=== PATIENT | female | born 1990 | race Caucasian/White ===

== ENCOUNTER 2016-08-13 19:13 | Emergency (ER) | payer OTHER ==
[~2016-08-13 19:13] MED LIST: ATARAX PO; BUSPAR PO; CARB20TAXR PO; NICO14DI3 TD; PROZAC PO; TOBRSUS8 AS; VIST25CA PO
--- NOTE | 2016-08-13 20:30 | REPUSA ---
HISTORY: Assess for mastoiditis TECHNIQUE: Multiple contiguous axial CT images were obtained through the facial bones at 2.5 mm slice thickness without the use of intravenous contrast. 1.25 mm axial reformations were created from whic h sagittal and coronal reformations were performed to evaluate the orbital floors. COMPARISON: CT facial bones 08/20/2014. FINDINGS: The visualized intracranial structures are unremarkable. Stable opacification of left mastoid air cells with an osseous defect in the posterior petrous portio n of the temporal bone extending from the middle aspect echotexture moderate canal through posterior cortical defect on axial series 201 images 10-13. Absence of intravenous contrast limits further eval uation of this region. Intraluminal densities in the mid left external auditory canal noted with calcification. Remaining facial bones and soft tissues demonstrate no evidence of destructive lytic changes, fractur e, or identifiable fluid collection. The paranasal sinuses are well pneumatized. IMPRESSION: Left mastoid findings as described are grossly stable in appearance from 08/20/2014, suggestive of post mastoidectomy changes although superimposed infection is not excluded.
[2016-08-13 20:34] LABS: BASO % 0.5 % (0.0-1.0); EOS # 0.1 K/mm3 (0.0-0.50); EOS % 2.8 % (0.0-3.0); LARGE UNSTAINED CELL # 0.2 K/mm3 (0.0-0.4); LARGE UNSTAINED CELL % 3.8 % (0.0-4.0); LYMPH # 1.9 K/mm3 (1.5-6.5); LYMPH % 36.2 % (24.0-44.0); MEAN CORPUSCULAR HEMOGLOBIN 32.2 pg (27.0-33.0); MEAN CORPUSCULAR HGB CONC 32.9 g/dl (32.0-36.5); MEAN CORPUSCULAR VOLUME 97.9 fl (80.0-96.0); MONO # 0.3 K/mm3 (0.0-0.8); MONO % 6.6 % (0.0-5.0); NEUTROPHILS # 2.6 K/mm3 (1.8-7.7); NEUTROPHILS % 50.1 % (36.0-66.0); PLATELET COUNT, AUTOMATED 334 k/mm3 (150-450); RED CELL DISTRIBUTION WIDTH 11.9 % (11.5-14.5); WHITE BLOOD COUNT 5.1 K/mm3 (4.0-10.0)
[2016-08-13] MEDS ORDERED: ACETAMINOPH W/CODEINE #3 TAB UD As Ordered ONE (20:49)
[2016-08-13 21:05] LABS: ANION GAP 7 MEQ/L (8-16); BLOOD UREA NITROGEN 12 MG/DL (7-18); CALCIUM LEVEL 8.5 MG/DL (8.5-10.1); CARBON DIOXIDE LEVEL 28 MEQ/L (21-32); CHLORIDE LEVEL 108 MEQ/L (98-107); CREATININE FOR GFR 0.57 MG/DL (0.55-1.02); GLOMERULAR FILTRATION RATE > 60.0 (>60); GLUCOSE, FASTING 87 MG/DL (70-105); POTASSIUM SERUM 3.8 MEQ/L (3.5-5.1); SODIUM LEVEL 143 MEQ/L (136-145)
[2016-08-13] MEDS ORDERED: CIPROFLOXACIN HC OTIC SUSPENSION As Ordered ONE (21:19)
[2016-08-13] MEDS ORDERED: CLINDAMYCIN 150 MG CAP As Ordered ONE (21:19)
[2016-08-13] MEDS ORDERED: ACETAMINOPHEN/CODEINE #3 TABLET (BULK) As Ordered ONE (21:21)
--- NOTE | 2016-08-13 21:46 | EDDOCDS ---
Physician Documentation [facility] Name: Nohemi Craig Age: 26 yrs Sex: Female : 1990 Arrival Date: 08/13/2016 Time: 19:13 Bed I3 / M3 Private MD: Chemo [facility] [place] Disposition: 08/13/16 21:29 Discharged to Home/Self Care. Impression: Other perforations of tympanic membrane - LEFT, Cellulitis, unspecified - POST AURICULAR - LEFT. - Condition is Stable. - Discharge Instructions: Eardrum Perforation. - Prescriptions for Cipro HC 0.2- 1 % Otic Drops, Suspension - instill 3 drop by OTIC route every 12 hours for 7 days; 10 milliliter. Clindamycin HCl 300 mg Oral Capsule - take 1 capsule by ORAL route every 6 hours; 40 capsule. Tylenol- Codeine #3 300-30 mg Oral Tablet - take 2 tablets by ORAL route every 6 hours As needed MDD: 4 tabs; 20 tablet. - Medication Reconciliation, Local Pharmacy Hours form. - Follow up: Maximiliano Jacobs; When: 1 week; Reason: Recheck today's complaints, Continuance of care. Follow up: Emergency Department; When: As needed; Reason: Worsening of conditions. - Problem is new. - Symptoms have improved. - Notes: CALL THE ENT OFFICE TOMORROW, TELL THEM YOU WERE SEEN IN THE ER AND THAT DR CLEMONS WAS CONSULTED AND YOU NEED AN APPOINTMENT WITHIN THE NEXT WEEK, IF SYMPTOMS WORSEN OR BECOME CONCERNING, RETURN TO THE ER. USE THE MEDICATIONS INSTRUTCED Historical: - Allergies: Augmentin (Rash); Flexeril; Tramadol HCl (Swelling); - Home Meds: 1. Tylenol 325 mg Oral tab 2 tabs every 4 hours - PMHx: Anxiety; Depression; head injury 2011; Seizure Disorder; - PSHx: Ear Tubes; - Social history: Smoking status: Patient states former smoker of tobacco. No barriers to communication noted, The patient speaks fluent Kinyarwanda. - Family history: No immediate family members are acutely ill. - : The pt / caregiver states he / she is not on anticoagulants. Home medication list is obtained from the patient. - Exposure Risk Screening:: None identified. 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 6 in. (167.64 cm) (R); Pain 9/10; 21:43 BP 128 / 76; Pulse 71; Resp 18; Temp 98.8(TE); Pulse Ox 97% on R/A; Pain 6/10; nn1 21:43 Pain 6/10; nn1 19:16 Body Mass Index 25.82 (72.57 kg, 167.64 cm) gr2 MDM: 19:48 IV Saline Lock ordered. ck7 19:48 NS 0.9% 1000 ml IV at bolus once ordered. ck7 19:49 CBC with Diff Ordered. EDMS 19:49 MED Profile Ordered. EDMS 19:49 CT Maxilofacial W/out Contrast Ordered. EDMS 19:53 Financial registration complete. zo 20:07 [facility] Payment Agreement was scanned into [employer] and attached to record. zo 20:48 Acetaminophen-Codeine 300 mg-30 mg 2 tabs PO once ordered. ck7 21:17 Ciprofloxacin-Hydrocortisone Drops 0.2 %-1 % 2 drps Otic once ordered. ck7 21:17 Clindamycin 300 mg PO once ordered. ck7 21:18 Acetaminophen-Codeine, 4 pack- 300 mg-30 mg 1 packets PO once; Dispense with patient. ck7 Take per package instructions. ordered. 21:19 CBC with Diff Reviewed. ck7 21:19 MED Profile Reviewed. ck7 21:19 CT Maxilofacial W/out Contrast Reviewed. ck7 Administered Medications: 20:20 Drug: NS 0.9% 1000 ml [sodium chloride 0.9 % intravenous solution] Route: IV; Rate: nn1 bolus; Site: right antecubital; 21:43 Follow up: IV Status: Completed infusion; IV Intake: 1000ml nn1 20:52 Drug: Acetaminophen-Codeine 2 tabs [acetaminophen 300 mg-codeine 30 mg tablet (2 tabs)] nn1 Route: PO; 21:43 Follow up: Pain 6/10 Adult nn1 21:26 Drug: Ciprofloxacin-Hydrocortisone 2 drps [ciprofloxacin 0.2 %-hydrocortisone 1 % ear nn1 drops,suspension (2 drps)] Route: Otic; Site: left ear; 21:26 Drug: Clindamycin 300 mg [clindamycin 150 mg capsule (2 caps)] Route: PO; nn1 21:28 Drug: Acetaminophen-Codeine, 4 pack- 1 packets [acetaminophen 300 mg-codeine 30 mg nn1 tablet (1 tabs)] {Co-Signature: ms18 (Yany Eli RN).} Route: PO; Signatures: Dispatcher [employer] Aaron Heath Christopher, RPA-C RPA-Cck7 Cindy VargasRN RN nn1 Yvonne Padilla RN RN tm5 Yany Eli RN ms18 The chart was reviewed and I authenticate all verbal orders and agree with the evaluation and treatment provided.Attachments: 20:07 [facility] Payment Agreement zo MTDD
--- NOTE | 2016-08-13 21:46 | EDDOCDS ---
Nurse's Notes [facility] Name: Nohemi Craig Age: 26 yrs Sex: Female : 1990 Arrival Date: 08/13/2016 Time: 19:13 Bed I3 / M3 Private MD: SAMI Mclain Diagnosis: Other perforations of tympanic membrane-LEFT;Cellulitis, unspecified-POST AURICULAR - LEFT Presentation: 08/13 19:18 Presenting complaint: Patient states: per pt about one week with left ear pain, states tm5 yesterday she lost hearing to left ear & has had bloody drainage to left ear as well. Adult Sepsis Screening: The patient does not have new or worsening altered mentation. Patient's respiratory rate is less than 22. Systolic blood pressure is greater than 100. Patient has a qSOFA score of 0- Negative Sepsis Screen. Suicide/Homicide risk assessment- the patient denies having any suicidal and/or homicidal ideations and does not present with any other emotional, behavioral or mental health complaints. 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 Transition of care: patient was not received from another setting of care. 19:18 Acuity: STACY Level 4 tm5 19:18 Method Of Arrival: Walkin/Carried/Asstd tm5 Triage Assessment: 19:20 General: Appears in no apparent distress, Behavior is appropriate for age, cooperative. tm5 Pain: Location: left ear Pain currently is 9 out of 10 on a pain scale. Pt Declines HIV testing. Neurological: Level of Consciousness is awake, alert, Oriented to person, place, time, EENT: Reports pain in left ear. Respiratory: Airway is patent Respiratory effort is even, unlabored, Respiratory pattern is regular, symmetrical. Derm: Skin is pink, warm & dry. 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 Tylenol 325 mg Oral tab 2 tabs every 4 hours - PMHx: Anxiety; Depression; head injury 2011; Seizure Disorder; - PSHx: Ear Tubes; - Social history: Smoking status: Patient states former smoker of tobacco. No barriers to communication noted, The patient speaks fluent Maori. - Family history: No immediate family members are acutely ill. - : The pt / caregiver states he / she is not on anticoagulants. Home medication list is obtained from the patient. - Exposure Risk Screening:: None identified. Screenin:21 Screening information is obtained from the patient. Fall risk: No risks identified. tm5 Assistance ADL's: requires no assistance with activities of daily living. Abuse/DV Screen: The patient / caregiver reports he/she is: not in a situation that causes fear, pain or injury. Nutritional screening: No deficits noted. Advance Directives: Currently, there is no health care proxy. There is no active DNR order. home support is adequate. Assessment: 20:18 General: Appears in no apparent distress, comfortable, Behavior is appropriate for age, nn1 cooperative. Pain: Location: left ear Pain currently is 9 out of 10 on a pain scale. Pain began 1 week ago. EENT: Reports decreased hearing in left ear reports she is unable to hear out of left ear since today bloody drainage out of left ear x 1 week. Respiratory: Airway is patent Respiratory effort is even, unlabored, Respiratory pattern is regular, symmetrical. Derm: Skin is pink, warm & dry. 20:53 General: Appears uncomfortable, Behavior is appropriate for age, cooperative. Pain: nn1 Location: left ear Pain currently is 9 out of 10 on a pain scale. 21:42 General: Appears in no apparent distress, comfortable, Behavior is appropriate for age, nn1 cooperative. Pain: Location: left ear Pain currently is 6 out of 10 on a pain scale. Respiratory: Airway is patent Respiratory effort is even, unlabored, Respiratory pattern is regular, symmetrical. Derm: Skin is pink, warm & dry. Vital Signs: 19:16 BP 139 / 85; Pulse 93; Resp 18 S; Temp 97.7(O); Pulse Ox 100% on R/A; Weight 72.57 kg gr2 (R); Height 5 ft. 6 in. (167.64 cm) (R); Pain 9/10; 21:43 BP 128 / 76; Pulse 71; Resp 18; Temp 98.8(TE); Pulse Ox 97% on R/A; Pain 6/10; nn1 21:43 Pain 6/10; nn1 19:16 Body Mass Index 25.82 (72.57 kg, 167.64 cm) gr2 Vitals: 19:16 Log In Time: August 13, 2016 at 19:16. gr2 ED Course: 19:15 Patient visited by Ann Shell. gr2 19:15 Patient moved to Waiting gr2 19:16 [facility] [place] Private Physician. gr2 19:17 Patient visited by Ann Shell. gr2 19:17 Patient moved to Pre RCE gr2 19:19 Triage Initiated tm5 19:22 Patient moved to Triage 2 tm5 19:23 Felix Bhakta RPA-C is PHCP. ck7 19:23 Mervat Mclean MD is Attending Physician. ck7 19:23 Patient visited by Felix Bhakta RPA-C. ck7 19:40 Patient moved to I3 / M3 lf1 20:07 [facility] Payment Agreement was scanned into [employer] and attached to record. zo 20:20 Patient visited by Cindy Vargas RN. nn1 20:20 Inserted saline lock: 20 gauge in right antecubital area and blood collected. The nn1 patient tolerated the procedure well. 20:20 MED Profile Sent. nn1 20:20 CBC with Diff Sent. nn1 20:57 Patient visited by Cindy Vargas RN. nn1 21:17 CT Maxilofacial W/out Contrast Returned. EDMS 21:27 Patient visited by Cindy Vargas RN. nn1 21:28 Maximiliano Jacobs is Referral Physician. ck7 21:44 No procedures done that require assistance. nn1 21:45 The patient / caregiver is instructed regarding the plan of care and ED course. nn1 Administered Medications: 20:20 Drug: NS 0.9% 1000 ml [sodium chloride 0.9 % intravenous solution] Route: IV; Rate: nn1 bolus; Site: right antecubital; 21:43 Follow up: IV Status: Completed infusion; IV Intake: 1000ml nn1 20:52 Drug: Acetaminophen-Codeine 2 tabs [acetaminophen 300 mg-codeine 30 mg tablet (2 tabs)] nn1 Route: PO; 21:43 Follow up: Pain 6/10 Adult nn1 21:26 Drug: Ciprofloxacin-Hydrocortisone 2 drps [ciprofloxacin 0.2 %-hydrocortisone 1 % ear nn1 drops,suspension (2 drps)] Route: Otic; Site: left ear; 21:26 Drug: Clindamycin 300 mg [clindamycin 150 mg capsule (2 caps)] Route: PO; nn1 21:28 Drug: Acetaminophen-Codeine, 4 pack- 1 packets [acetaminophen 300 mg-codeine 30 mg nn1 tablet (1 tabs)] {Co-Signature: ms18 (Yany Eli RN).} Route: PO; Intake: 21:43 IV: 1000.00ml (NS); Total: 1000.00ml. nn1 21:43 IV: 1000.00ml; Total: 2000.00ml. nn1 Order Results: Lab Order: CBC with Diff; SPEC'M 08/13/16 20:09 Test: WHITE BLOOD COUNT; Value: 5.1; Range: 4.0-10.0; Units: K/mm3; Status: F Test: RED BLOOD COUNT; Value: 3.77; Range: 4.00-5.40; Abnormal: Below low normal; Units: M/mm3; Status: F Test: HEMOGLOBIN; Value: 12.2; Range: 12.0-16.0; Units: g/dl; Status: F Test: HEMATOCRIT; Value: 36.9; Range: 36.0-47.0; Units: %; Status: F Test: MEAN CORPUSCULAR VOLUME; Value: 97.9; Range: 80.0-96.0; Abnormal: Above high normal; Units: fl; Status: F Test: MEAN CORPUSCULAR HEMOGLOBIN; Value: 32.2; Range: 27.0-33.0; Units: pg; Status: F Test: MEAN CORPUSCULAR HGB CONC; Value: 32.9; Range: 32.0-36.5; Units: g/dl; Status: F Test: RED CELL DISTRIBUTION WIDTH; Value: 11.9; Range: 11.5-14.5; Units: %; Status: F Test: PLATELET COUNT, AUTOMATED; Value: 334; Range: 150-450; Units: k/mm3; Status: F Test: NEUTROPHILS %; Value: 50.1; Range: 36.0-66.0; Units: %; Status: F Test: LYMPH %; Value: 36.2; Range: 24.0-44.0; Units: %; Status: F Test: MONO %; Value: 6.6; Range: 0.0-5.0; Abnormal: Above high normal; Units: %; Status: F Test: EOS %; Value: 2.8; Range: 0.0-3.0; Units: %; Status: F Test: BASO %; Value: 0.5; Range: 0.0-1.0; Units: %; Status: F Test: LARGE UNSTAINED CELL %; Value: 3.8; Range: 0.0-4.0; Units: %; Status: F Test: NEUTROPHILS #; Value: 2.6; Range: 1.8-7.7; Units: K/mm3; Status: F Test: LYMPH #; Value: 1.9; Range: 1.5-6.5; Units: K/mm3; Status: F Test: MONO #; Value: 0.3; Range: 0.0-0.8; Units: K/mm3; Status: F Test: EOS #; Value: 0.1; Range: 0.0-0.50; Units: K/mm3; Status: F Test: BASO #; Value: 0.0; Range: 0.0-0.2; Units: K/mm3; Status: F Test: LARGE UNSTAINED CELL #; Value: 0.2; Range: 0.0-0.4; Units: K/mm3; Status: F Lab Order: [facility] Profile; SPEC'M 08/13/16 20:09 Test: GLUCOSE, FASTING; Value: 87; Range: 70-105; Units: MG/DL; Status: F Test: BLOOD UREA NITROGEN; Value: 12; Range: 7-18; Units: MG/DL; Status: F Test: CREATININE FOR GFR; Value: 0.57; Range: 0.55-1.02; Units: MG/DL; Status: F Test: GLOMERULAR FILTRATION RATE; Value: > 60.0; Range: >60; Status: F Test: SODIUM LEVEL; Value: 143; Range: 136-145; Units: MEQ/L; Status: F Test: POTASSIUM SERUM; Value: 3.8; Range: 3.5-5.1; Units: MEQ/L; Status: F Test: CHLORIDE LEVEL; Value: 108; Range: 98-107; Abnormal: Above high normal; Units: MEQ/L; Status: F Test: CARBON DIOXIDE LEVEL; Value: 28; Range: 21-32; Units: MEQ/L; Status: F Test: ANION GAP; Value: 7; Range: 8-16; Abnormal: Below low normal; Units: MEQ/L; Status: F Test: CALCIUM LEVEL; Value: 8.5; Range: 8.5-10.1; Units: MG/DL; Status: F Test Note: ; Units are mL/min/1.73 m2 Chronic Kidney Disease Staging per NKF: Stage I & II GFR >=60 Normal to Mildly Decreased Stage III GFR 30-59 Moderately Decreased Stage IV GFR 15-29 Severely Decreased Stage V GFR <15 Very Little GFR Left ESRD GFR <15 on OUTDOOR ADVENTURE LEADER Radiology Order: CT Maxilofacial W/out Contrast Test: CT Maxilofacial W/out Contrast REASON FOR EXAMINATION: R./O LEFT MASTOIDITIS; ; HISTORY: Assess for mastoiditis; TECHNIQUE: Multiple contiguous axial CT images were obtained through the facial bones at 2.5 mm slice; thickness without the use of intravenous contrast. 1.25 mm axial reformations were created from whic; h sagittal and coronal reformations were performed to evaluate the orbital floors.; COMPARISON: CT facial bones 08/20/2014.; FINDINGS:; The visualized intracranial structures are unremarkable.; Stable opacification of left mastoid air cells with an osseous defect in the posterior petrous portio; n of the temporal bone extending from the middle aspect echotexture moderate canal through posterior; cortical defect on axial series 201 images 10-13. Absence of intravenous contrast limits further eval; uation of this region.; Intraluminal densities in the mid left external auditory canal noted with calcification.; Remaining facial bones and soft tissues demonstrate no evidence of destructive lytic changes, fractur; e, or identifiable fluid collection.; The paranasal sinuses are well pneumatized.; IMPRESSION:; Left mastoid findings as described are grossly stable in appearance from 08/20/2014, suggestive of post; mastoidectomy changes although superimposed infection is not excluded.; ; Outcome: 21:29 Discharge ordered by Provider. ck7 21:44 Discharge Assessment: Patient awake, alert and oriented x 3. No cognitive and/or nn1 functional deficits noted. Patient verbalized understanding of disposition instructions. patient administered narcotics - yes. Pt provided with safe discharge. The following High Risk Discharge criteria are identified: None. Discharged to home ambulatory, with significant other. Condition: stable Condition: unchanged. Discharge instructions given to patient, Instructed on discharge instructions, follow up and referral plans. medication usage, Demonstrated understanding of instructions, medications, Pt was receptive of discharge instructions/ teaching. Prescriptions given X 3. CT Study completed. Property :Personal belongings accompany Pt. 21:45 Patient left the ED. nn1 Signatures: Dispatcher [employer] EDMS Aaron Shabazz Lisa,RN RN lf1 Felix Bhakta, RPA-C RPA-Cck7 Ann Shell gr2 Cindy VargasRN RN nn1 Yvonne PadillaRN RN tm5 Yany Eli RN [id number] GAGANDEEPD
--- NOTE | 2016-08-15 22:45 | EDDOCDS ---
Nurse's Notes [facility] Name: Nohemi Craig Age: 26 yrs Sex: Female : 1990 Arrival Date: 08/13/2016 Time: 19:13 Bed I3 / M3 Private MD: SAMI Mclain Diagnosis: Other perforations of tympanic membrane-LEFT;Cellulitis, unspecified-POST AURICULAR - LEFT Presentation: 08/13 19:18 Presenting complaint: Patient states: per pt about one week with left ear pain, states tm5 yesterday she lost hearing to left ear & has had bloody drainage to left ear as well. Adult Sepsis Screening: The patient does not have new or worsening altered mentation. Patient's respiratory rate is less than 22. Systolic blood pressure is greater than 100. Patient has a qSOFA score of 0- Negative Sepsis Screen. Suicide/Homicide risk assessment- the patient denies having any suicidal and/or homicidal ideations and does not present with any other emotional, behavioral or mental health complaints. 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 Transition of care: patient was not received from another setting of care. 19:18 Acuity: STACY Level 4 tm5 19:18 Method Of Arrival: Walkin/Carried/Asstd tm5 Triage Assessment: 19:20 General: Appears in no apparent distress, Behavior is appropriate for age, cooperative. tm5 Pain: Location: left ear Pain currently is 9 out of 10 on a pain scale. Pt Declines HIV testing. Neurological: Level of Consciousness is awake, alert, Oriented to person, place, time, EENT: Reports pain in left ear. Respiratory: Airway is patent Respiratory effort is even, unlabored, Respiratory pattern is regular, symmetrical. Derm: Skin is pink, warm & dry. 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 Tylenol 325 mg Oral tab 2 tabs every 4 hours - PMHx: Anxiety; Depression; head injury 2011; Seizure Disorder; - PSHx: Ear Tubes; - Social history: Smoking status: Patient states former smoker of tobacco. No barriers to communication noted, The patient speaks fluent Polish. - Family history: No immediate family members are acutely ill. - : The pt / caregiver states he / she is not on anticoagulants. Home medication list is obtained from the patient. - Exposure Risk Screening:: None identified. Screenin:21 Screening information is obtained from the patient. Fall risk: No risks identified. tm5 Assistance ADL's: requires no assistance with activities of daily living. Abuse/DV Screen: The patient / caregiver reports he/she is: not in a situation that causes fear, pain or injury. Nutritional screening: No deficits noted. Advance Directives: Currently, there is no health care proxy. There is no active DNR order. home support is adequate. Assessment: 20:18 General: Appears in no apparent distress, comfortable, Behavior is appropriate for age, nn1 cooperative. Pain: Location: left ear Pain currently is 9 out of 10 on a pain scale. Pain began 1 week ago. EENT: Reports decreased hearing in left ear reports she is unable to hear out of left ear since today bloody drainage out of left ear x 1 week. Respiratory: Airway is patent Respiratory effort is even, unlabored, Respiratory pattern is regular, symmetrical. Derm: Skin is pink, warm & dry. 20:53 General: Appears uncomfortable, Behavior is appropriate for age, cooperative. Pain: nn1 Location: left ear Pain currently is 9 out of 10 on a pain scale. 21:42 General: Appears in no apparent distress, comfortable, Behavior is appropriate for age, nn1 cooperative. Pain: Location: left ear Pain currently is 6 out of 10 on a pain scale. Respiratory: Airway is patent Respiratory effort is even, unlabored, Respiratory pattern is regular, symmetrical. Derm: Skin is pink, warm & dry. Vital Signs: 19:16 BP 139 / 85; Pulse 93; Resp 18 S; Temp 97.7(O); Pulse Ox 100% on R/A; Weight 72.57 kg gr2 (R); Height 5 ft. 6 in. (167.64 cm) (R); Pain 9/10; 21:43 BP 128 / 76; Pulse 71; Resp 18; Temp 98.8(TE); Pulse Ox 97% on R/A; Pain 6/10; nn1 21:43 Pain 6/10; nn1 19:16 Body Mass Index 25.82 (72.57 kg, 167.64 cm) gr2 Vitals: 19:16 Log In Time: August 13, 2016 at 19:16. gr2 ED Course: 19:15 Patient visited by Ann Shell. gr2 19:15 Patient moved to Waiting gr2 19:16 [facility]o [facility] is Private Physician. gr2 19:17 Patient visited by Ann Shell. gr2 19:17 Patient moved to Pre RCE gr2 19:19 Triage Initiated tm5 19:22 Patient moved to Triage 2 tm5 19:23 Felix Bhakta RPA-C is PHCP. ck7 19:23 Mervat Mclean MD is Attending Physician. ck7 19:23 Patient visited by Felix Bhakta RPA-C. ck7 19:40 Patient moved to I3 / M3 lf1 20:07 [facility] Payment Agreement was scanned into [employer] and attached to record. zo 20:20 Patient visited by Cindy Vargas RN. nn1 20:20 Inserted saline lock: 20 gauge in right antecubital area and blood collected. The nn1 patient tolerated the procedure well. 20:20 MED Profile Sent. nn1 20:20 CBC with Diff Sent. nn1 20:57 Patient visited by Cindy Vargas RN. nn1 21:17 CT Maxilofacial W/out Contrast Returned. EDMS 21:27 Patient visited by Cindy Vargas RN. nn1 21:28 Maximiliano Jacobs is Referral Physician. ck7 21:44 No procedures done that require assistance. nn1 21:45 The patient / caregiver is instructed regarding the plan of care and ED course. nn1 08/14 17:48 T-Sheet-- Draft Copy was scanned into [employer] and attached to record. klr Administered Medications: 08/13 20:20 Drug: NS 0.9% 1000 ml [sodium chloride 0.9 % intravenous solution] Route: IV; Rate: nn1 bolus; Site: right antecubital; 21:43 Follow up: IV Status: Completed infusion; IV Intake: 1000ml nn1 20:52 Drug: Acetaminophen-Codeine 2 tabs [acetaminophen 300 mg-codeine 30 mg tablet (2 tabs)] nn1 Route: PO; 21:43 Follow up: Pain 6/10 Adult nn1 21:26 Drug: Ciprofloxacin-Hydrocortisone 2 drps [ciprofloxacin 0.2 %-hydrocortisone 1 % ear nn1 drops,suspension (2 drps)] Route: Otic; Site: left ear; 21:26 Drug: Clindamycin 300 mg [clindamycin 150 mg capsule (2 caps)] Route: PO; nn1 21:28 Drug: Acetaminophen-Codeine, 4 pack- 1 packets [acetaminophen 300 mg-codeine 30 mg nn1 tablet (1 tabs)] {Co-Signature: ms18 (Yany Eli RN).} Route: PO; Intake: 21:43 IV: 1000.00ml (NS); Total: 1000.00ml. nn1 21:43 IV: 1000.00ml; Total: 2000.00ml. nn1 Order Results: Lab Order: CBC with Diff; SPEC'M 08/13/16 20:09 Test: WHITE BLOOD COUNT; Value: 5.1; Range: 4.0-10.0; Units: K/mm3; Status: F Test: RED BLOOD COUNT; Value: 3.77; Range: 4.00-5.40; Abnormal: Below low normal; Units: M/mm3; Status: F Test: HEMOGLOBIN; Value: 12.2; Range: 12.0-16.0; Units: g/dl; Status: F Test: HEMATOCRIT; Value: 36.9; Range: 36.0-47.0; Units: %; Status: F Test: MEAN CORPUSCULAR VOLUME; Value: 97.9; Range: 80.0-96.0; Abnormal: Above high normal; Units: fl; Status: F Test: MEAN CORPUSCULAR HEMOGLOBIN; Value: 32.2; Range: 27.0-33.0; Units: pg; Status: F Test: MEAN CORPUSCULAR HGB CONC; Value: 32.9; Range: 32.0-36.5; Units: g/dl; Status: F Test: RED CELL DISTRIBUTION WIDTH; Value: 11.9; Range: 11.5-14.5; Units: %; Status: F Test: PLATELET COUNT, AUTOMATED; Value: 334; Range: 150-450; Units: k/mm3; Status: F Test: NEUTROPHILS %; Value: 50.1; Range: 36.0-66.0; Units: %; Status: F Test: LYMPH %; Value: 36.2; Range: 24.0-44.0; Units: %; Status: F Test: MONO %; Value: 6.6; Range: 0.0-5.0; Abnormal: Above high normal; Units: %; Status: F Test: EOS %; Value: 2.8; Range: 0.0-3.0; Units: %; Status: F Test: BASO %; Value: 0.5; Range: 0.0-1.0; Units: %; Status: F Test: LARGE UNSTAINED CELL %; Value: 3.8; Range: 0.0-4.0; Units: %; Status: F Test: NEUTROPHILS #; Value: 2.6; Range: 1.8-7.7; Units: K/mm3; Status: F Test: LYMPH #; Value: 1.9; Range: 1.5-6.5; Units: K/mm3; Status: F Test: MONO #; Value: 0.3; Range: 0.0-0.8; Units: K/mm3; Status: F Test: EOS #; Value: 0.1; Range: 0.0-0.50; Units: K/mm3; Status: F Test: BASO #; Value: 0.0; Range: 0.0-0.2; Units: K/mm3; Status: F Test: LARGE UNSTAINED CELL #; Value: 0.2; Range: 0.0-0.4; Units: K/mm3; Status: F Lab Order: [facility]; [facility] 08/13/16 20:09 Test: GLUCOSE, FASTING; Value: 87; Range: 70-105; Units: MG/DL; Status: F Test: BLOOD UREA NITROGEN; Value: 12; Range: 7-18; Units: MG/DL; Status: F Test: CREATININE FOR GFR; Value: 0.57; Range: 0.55-1.02; Units: MG/DL; Status: F Test: GLOMERULAR FILTRATION RATE; Value: > 60.0; Range: >60; Status: F Test: SODIUM LEVEL; Value: 143; Range: 136-145; Units: MEQ/L; Status: F Test: POTASSIUM SERUM; Value: 3.8; Range: 3.5-5.1; Units: MEQ/L; Status: F Test: CHLORIDE LEVEL; Value: 108; Range: 98-107; Abnormal: Above high normal; Units: MEQ/L; Status: F Test: CARBON DIOXIDE LEVEL; Value: 28; Range: 21-32; Units: MEQ/L; Status: F Test: ANION GAP; Value: 7; Range: 8-16; Abnormal: Below low normal; Units: MEQ/L; Status: F Test: CALCIUM LEVEL; Value: 8.5; Range: 8.5-10.1; Units: MG/DL; Status: F Test Note: ; Units are mL/min/1.73 m2 Chronic Kidney Disease Staging per NKF: Stage I & II GFR >=60 Normal to Mildly Decreased Stage III GFR 30-59 Moderately Decreased Stage IV GFR 15-29 Severely Decreased Stage V GFR <15 Very Little GFR Left ESRD GFR <15 on PHOTOGRAPHER NEWS Radiology Order: CT Maxilofacial W/out Contrast Test: CT Maxilofacial W/out Contrast REASON FOR EXAMINATION: R./O LEFT MASTOIDITIS; ; HISTORY: Assess for mastoiditis; TECHNIQUE: Multiple contiguous axial CT images were obtained through the facial bones at 2.5 mm slice; thickness without the use of intravenous contrast. 1.25 mm axial reformations were created from whic; h sagittal and coronal reformations were performed to evaluate the orbital floors.; COMPARISON: CT facial bones 08/20/2014.; FINDINGS:; The visualized intracranial structures are unremarkable.; Stable opacification of left mastoid air cells with an osseous defect in the posterior petrous portio; n of the temporal bone extending from the middle aspect echotexture moderate canal through posterior; cortical defect on axial series 201 images 10-13. Absence of intravenous contrast limits further eval; uation of this region.; Intraluminal densities in the mid left external auditory canal noted with calcification.; Remaining facial bones and soft tissues demonstrate no evidence of destructive lytic changes, fractur; e, or identifiable fluid collection.; The paranasal sinuses are well pneumatized.; IMPRESSION:; Left mastoid findings as described are grossly stable in appearance from 08/20/2014, suggestive of post; mastoidectomy changes although superimposed infection is not excluded.; ; Outcome: 21:29 Discharge ordered by Provider. ck7 21:44 Discharge Assessment: Patient awake, alert and oriented x 3. No cognitive and/or nn1 functional deficits noted. Patient verbalized understanding of disposition instructions. patient administered narcotics - yes. Pt provided with safe discharge. The following High Risk Discharge criteria are identified: None. Discharged to home ambulatory, with significant other. Condition: stable Condition: unchanged. Discharge instructions given to patient, Instructed on discharge instructions, follow up and referral plans. medication usage, Demonstrated understanding of instructions, medications, Pt was receptive of discharge instructions/ teaching. Prescriptions given X 3. CT Study completed. Property :Personal belongings accompany Pt. 21:45 Patient left the ED. nn1 Signatures: Dispatcher [employer] EDMS Aaron Shabazz Lisa,RN RN lf1 Felix Bhakta, RPA-C RPA-Cck7 Ann Shell2 Cindy Vargas,RN RN nn1 Debra Venegas TonyaRN RN tm5 Yany Eli RN [id number] Chart Complete CORNELIO
--- NOTE | 2016-08-15 22:45 | EDDOCDS ---
Physician Documentation [facility] Name: Nohemi Craig Age: 26 yrs Sex: Female : 1990 Arrival Date: 08/13/2016 Time: 19:13 Bed I3 / M3 Private MD: Chemo [facility] Disposition: 08/13/16 21:29 Discharged to Home/Self Care. Impression: Other perforations of tympanic membrane - LEFT, Cellulitis, unspecified - POST AURICULAR - LEFT. - Condition is Stable. - Discharge Instructions: Eardrum Perforation. - Prescriptions for Cipro HC 0.2- 1 % Otic Drops, Suspension - instill 3 drop by OTIC route every 12 hours for 7 days; 10 milliliter. Clindamycin HCl 300 mg Oral Capsule - take 1 capsule by ORAL route every 6 hours; 40 capsule. Tylenol- Codeine #3 300-30 mg Oral Tablet - take 2 tablets by ORAL route every 6 hours As needed MDD: 4 tabs; 20 tablet. - Medication Reconciliation, Local Pharmacy Hours form. - Follow up: Maximiliano Jacobs; When: 1 week; Reason: Recheck today's complaints, Continuance of care. Follow up: Emergency Department; When: As needed; Reason: Worsening of conditions. - Problem is new. - Symptoms have improved. - Notes: CALL THE ENT OFFICE TOMORROW, TELL THEM YOU WERE SEEN IN THE ER AND THAT DR CLEMONS WAS CONSULTED AND YOU NEED AN APPOINTMENT WITHIN THE NEXT WEEK, IF SYMPTOMS WORSEN OR BECOME CONCERNING, RETURN TO THE ER. USE THE MEDICATIONS INSTRUTCED Historical: - Allergies: Augmentin (Rash); Flexeril; Tramadol HCl (Swelling); - Home Meds: 1. Tylenol 325 mg Oral tab 2 tabs every 4 hours - PMHx: Anxiety; Depression; head injury 2011; Seizure Disorder; - PSHx: Ear Tubes; - Social history: Smoking status: Patient states former smoker of tobacco. No barriers to communication noted, The patient speaks fluent Lao. - Family history: No immediate family members are acutely ill. - : The pt / caregiver states he / she is not on anticoagulants. Home medication list is obtained from the patient. - Exposure Risk Screening:: None identified. 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 6 in. (167.64 cm) (R); Pain 9/10; 21:43 BP 128 / 76; Pulse 71; Resp 18; Temp 98.8(TE); Pulse Ox 97% on R/A; Pain 6/10; nn1 21:43 Pain 6/10; nn1 19:16 Body Mass Index 25.82 (72.57 kg, 167.64 cm) gr2 MDM: 19:48 IV Saline Lock ordered. ck7 19:48 NS 0.9% 1000 ml IV at bolus once ordered. ck7 19:49 CBC with Diff Ordered. EDMS 19:49 MED Profile Ordered. EDMS 19:49 CT Maxilofacial W/out Contrast Ordered. EDMS 19:53 Financial registration complete. zo 20:07 [facility] Payment Agreement was scanned into [employer] and attached to record. zo 20:48 Acetaminophen-Codeine 300 mg-30 mg 2 tabs PO once ordered. ck7 21:17 Ciprofloxacin-Hydrocortisone Drops 0.2 %-1 % 2 drps Otic once ordered. ck7 21:17 Clindamycin 300 mg PO once ordered. ck7 21:18 Acetaminophen-Codeine, 4 pack- 300 mg-30 mg 1 packets PO once; Dispense with patient. ck7 Take per package instructions. ordered. 21:19 CBC with Diff Reviewed. ck7 21:19 MED Profile Reviewed. ck7 21:19 CT Maxilofacial W/out Contrast Reviewed. ck7 08/14 17:48 T-Sheet-- Draft Copy was scanned into [employer] and attached to record. klr Administered Medications: 08/13 20:20 Drug: NS 0.9% 1000 ml [sodium chloride 0.9 % intravenous solution] Route: IV; Rate: nn1 bolus; Site: right antecubital; 21:43 Follow up: IV Status: Completed infusion; IV Intake: 1000ml nn1 20:52 Drug: Acetaminophen-Codeine 2 tabs [acetaminophen 300 mg-codeine 30 mg tablet (2 tabs)] nn1 Route: PO; 21:43 Follow up: Pain 6/10 Adult nn1 21:26 Drug: Ciprofloxacin-Hydrocortisone 2 drps [ciprofloxacin 0.2 %-hydrocortisone 1 % ear nn1 drops,suspension (2 drps)] Route: Otic; Site: left ear; 21:26 Drug: Clindamycin 300 mg [clindamycin 150 mg capsule (2 caps)] Route: PO; nn1 21:28 Drug: Acetaminophen-Codeine, 4 pack- 1 packets [acetaminophen 300 mg-codeine 30 mg nn1 tablet (1 tabs)] {Co-Signature: [id number] (Yany Eli RN).} Route: PO; Signatures: Dispatcher [employer] EDMS Aaron Shabazz Christopher, RPA-C RPA-Cck7 Cindy VargasRN RN nn1 Debra Venegas Tonya,RN RN tm5 Yany Eli RN ms18 The chart was reviewed and I authenticate all verbal orders and agree with the evaluation and treatment provided.Attachments: 20:07 [facility] Payment Agreement zo 08/14 17:48 T-Sheet-- Draft Copy klr Chart Complete MTDD
--- NOTE | 2016-08-15 22:45 | EDDOCDS ---
Physician Documentation [facility] Name: Nohemi Craig Age: 26 yrs Sex: Female : 1990 Arrival Date: 08/13/2016 Time: 19:13 Bed I3 / M3 Private MD: Cheom [facility] Disposition: 08/13/16 21:29 Discharged to Home/Self Care. Impression: Other perforations of tympanic membrane - LEFT, Cellulitis, unspecified - POST AURICULAR - LEFT. - Condition is Stable. - Discharge Instructions: Eardrum Perforation. - Prescriptions for Cipro HC 0.2- 1 % Otic Drops, Suspension - instill 3 drop by OTIC route every 12 hours for 7 days; 10 milliliter. Clindamycin HCl 300 mg Oral Capsule - take 1 capsule by ORAL route every 6 hours; 40 capsule. Tylenol- Codeine #3 300-30 mg Oral Tablet - take 2 tablets by ORAL route every 6 hours As needed MDD: 4 tabs; 20 tablet. - Medication Reconciliation, Local Pharmacy Hours form. - Follow up: Maximiliano Jacobs; When: 1 week; Reason: Recheck today's complaints, Continuance of care. Follow up: Emergency Department; When: As needed; Reason: Worsening of conditions. - Problem is new. - Symptoms have improved. - Notes: CALL THE ENT OFFICE TOMORROW, TELL THEM YOU WERE SEEN IN THE ER AND THAT DR CLEMONS WAS CONSULTED AND YOU NEED AN APPOINTMENT WITHIN THE NEXT WEEK, IF SYMPTOMS WORSEN OR BECOME CONCERNING, RETURN TO THE ER. USE THE MEDICATIONS INSTRUTCED Historical: - Allergies: Augmentin (Rash); Flexeril; Tramadol HCl (Swelling); - Home Meds: 1. Tylenol 325 mg Oral tab 2 tabs every 4 hours - PMHx: Anxiety; Depression; head injury 2011; Seizure Disorder; - PSHx: Ear Tubes; - Social history: Smoking status: Patient states former smoker of tobacco. No barriers to communication noted, The patient speaks fluent Divehi. - Family history: No immediate family members are acutely ill. - : The pt / caregiver states he / she is not on anticoagulants. Home medication list is obtained from the patient. - Exposure Risk Screening:: None identified. 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 6 in. (167.64 cm) (R); Pain 9/10; 21:43 BP 128 / 76; Pulse 71; Resp 18; Temp 98.8(TE); Pulse Ox 97% on R/A; Pain 6/10; nn1 21:43 Pain 6/10; nn1 19:16 Body Mass Index 25.82 (72.57 kg, 167.64 cm) gr2 MDM: 19:48 IV Saline Lock ordered. ck7 19:48 NS 0.9% 1000 ml IV at bolus once ordered. ck7 19:49 CBC with Diff Ordered. EDMS 19:49 MED Profile Ordered. EDMS 19:49 CT Maxilofacial W/out Contrast Ordered. EDMS 19:53 Financial registration complete. zo 20:07 [facility] Payment Agreement was scanned into [employer] and attached to record. zo 20:48 Acetaminophen-Codeine 300 mg-30 mg 2 tabs PO once ordered. ck7 21:17 Ciprofloxacin-Hydrocortisone Drops 0.2 %-1 % 2 drps Otic once ordered. ck7 21:17 Clindamycin 300 mg PO once ordered. ck7 21:18 Acetaminophen-Codeine, 4 pack- 300 mg-30 mg 1 packets PO once; Dispense with patient. ck7 Take per package instructions. ordered. 21:19 CBC with Diff Reviewed. ck7 21:19 MED Profile Reviewed. ck7 21:19 CT Maxilofacial W/out Contrast Reviewed. ck7 08/14 17:48 T-Sheet-- Draft Copy was scanned into [employer] and attached to record. klr Administered Medications: 08/13 20:20 Drug: NS 0.9% 1000 ml [sodium chloride 0.9 % intravenous solution] Route: IV; Rate: nn1 bolus; Site: right antecubital; 21:43 Follow up: IV Status: Completed infusion; IV Intake: 1000ml nn1 20:52 Drug: Acetaminophen-Codeine 2 tabs [acetaminophen 300 mg-codeine 30 mg tablet (2 tabs)] nn1 Route: PO; 21:43 Follow up: Pain 6/10 Adult nn1 21:26 Drug: Ciprofloxacin-Hydrocortisone 2 drps [ciprofloxacin 0.2 %-hydrocortisone 1 % ear nn1 drops,suspension (2 drps)] Route: Otic; Site: left ear; 21:26 Drug: Clindamycin 300 mg [clindamycin 150 mg capsule (2 caps)] Route: PO; nn1 21:28 Drug: Acetaminophen-Codeine, 4 pack- 1 packets [acetaminophen 300 mg-codeine 30 mg nn1 tablet (1 tabs)] {Co-Signature: [id number] (Yany Eli RN).} Route: PO; Signatures: Dispatcher [employer] EDMS Aaron Shabazz Christopher, RPA-C RPA-Cck7 Cindy VargasRN RN nn1 Debra Venegas Tonya,RN RN tm5 Yany Eli RN ms18 The chart was reviewed and I authenticate all verbal orders and agree with the evaluation and treatment provided.Attachments: 20:07 [facility] Payment Agreement zo 08/14 17:48 T-Sheet-- Draft Copy klr Chart Complete MTDD
== END 2016-08-13 21:45 | disposition home or self-care (01) ==
LOC: M ED 19:13
DX: H72.92 Unspecified perforation of tympanic membrane, left ear (principal); H60.12 Cellulitis of left external ear; F41.9 Anxiety disorder, unspecified; F32.9 Major depressive disorder, single episode, unspecified; G40.909 Epilepsy, unspecified, not intractable, without status epilepticus; Z87.820 Personal history of traumatic brain injury; Z87.891 Personal history of nicotine dependence; Z88.0 Allergy status to penicillin; Z88.8 Allergy status to other drugs, medicaments and biological substances

== ENCOUNTER 2016-08-21 23:37 | Inpatient (IN) | payer OTHER ==
[~2016-08-21] VITALS: Ht 167.6 cm; Wt 71.5 kg
[2016-08-22] MEDS ORDERED: MULTTAB4 PO (00:14)
[2016-08-22] MEDS ORDERED: LEVO750T33 PO (00:14)
[2016-08-22] MEDS ORDERED: ACET30TAB PO (00:14)
[2016-08-22] MEDS ORDERED: ONDANSETRON 4MG/2ML VIAL (J2405) IV ONE (03:00)
[2016-08-22] MEDS ORDERED: MORPHINE 4 MG/ML 1ML SYRINGE IV ONE (03:00)
[2016-08-22 03:48] LABS: BASO % 0.2 % (0.0-1.0); EOS # 0.2 K/mm3 (0.0-0.50); EOS % 1.2 % (0.0-3.0); LARGE UNSTAINED CELL # 0.3 K/mm3 (0.0-0.4); LYMPH # 1.5 K/mm3 (1.5-6.5); LYMPH % 8.4 % (24.0-44.0); MEAN CORPUSCULAR HEMOGLOBIN 32.6 pg (27.0-33.0); MEAN CORPUSCULAR HGB CONC 32.8 g/dl (32.0-36.5); MEAN CORPUSCULAR VOLUME 99.3 fl (80.0-96.0); MONO # 1.4 K/mm3 (0.0-0.8); MONO % 9.6 % (0.0-5.0); NEUTROPHILS # 11.1 K/mm3 (1.8-7.7); NEUTROPHILS % 78.6 % (36.0-66.0); PLATELET COUNT, AUTOMATED 276 k/mm3 (150-450); RED CELL DISTRIBUTION WIDTH 12.2 % (11.5-14.5); WHITE BLOOD COUNT 14.1 K/mm3 (4.0-10.0)
[2016-08-22 04:00] LABS: CONTROL LINE HCG INT CTR LINE PRESENT
[2016-08-22 04:05] LABS: ANION GAP 12 MEQ/L (8-16); BLOOD UREA NITROGEN 7 MG/DL (7-18); CARBON DIOXIDE LEVEL 25 MEQ/L (21-32); CHLORIDE LEVEL 104 MEQ/L (98-107); CREATININE FOR GFR 0.57 MG/DL (0.55-1.02); GLOMERULAR FILTRATION RATE > 60.0 (>60); GLUCOSE, FASTING 86 MG/DL (70-105); POTASSIUM SERUM 3.7 MEQ/L (3.5-5.1); SODIUM LEVEL 141 MEQ/L (136-145)
[2016-08-22] MEDS ORDERED: HYDROmorphone HCL 1 MG/ML SYRINGE (J1170) IV ONE ×3 (04:15→07:45)
--- NOTE | 2016-08-22 04:40 | REPUSA ---
CLINICAL HISTORY: Headaches. TECHNIQUE: Multiple axial brain CT scan sections were obtained from base to vertex without contrast a dministration. COMMENTS: There is interval appearance of soft tissue thickening in the left mastoidectomy defect. The study shows normal configuration of sella turcica. There are no intra or extra-axial collections. There is no mass effect or midline shift. There is no evidence of hematoma formation. No hydrocephal us is present. No abnormal calcifications are noted. No significant abnormalities are seen either in the posterior fossa or supratentorial compartment.The sinuses and right mastoid air cells are patent. IMPRESSION: There is interval appearance of soft tissue thickening in the left mastoidectomy defect. The soft tis pretty thickening is extending to the corresponding aspect of the middle ear cavity. This was not presen t on prior exam performed on 11/30/2015. No evidence of acute intracranial pathology. Thank you for your kind referral of this patient.
[2016-08-22] MEDS ORDERED: NS 1,000 ML IV ONE (04:45)
[2016-08-22 05:48] LABS: GLUCOSE CSF 60 MG/DL (40-75)
[2016-08-22 06:34] LABS: APPEARANCE, CSF CLEAR (CLEAR); COLOR, CSF PINK (COLORLESS); CSF DIFF IF INDICATED? NO (NO); CSF TUBE# CELL CNT TUBE 1; DILUTION RBC CSF 1 (0-10); DILUTION WBC CSF 1 (0-10); RBC CALC CSF 694 /mm3 (0-0); RBC COUNTED CSF 625 /mm3 (0-0); WBC COUNTED CSF 2 /uL (0-10)
[2016-08-22 06:38] LABS: RBC CSF AUTO 3 /mm3 (0-0); WBC CSF AUTO 1 /mm3 (0-10)
[2016-08-22 06:40] LABS: APPEARANCE, CSF CLEAR (CLEAR); COLOR, CSF COLORLESS (COLORLESS); CSF DIFF IF INDICATED? NO (NO); CSF TUBE# CELL CNT TUBE 4
[2016-08-22 06:41] LABS: CSF DILUENT LOT # 6165
[2016-08-22] MEDS ORDERED: CIPROFLOXACIN 400 MG in APPROPRIATE DILUENT 1 EA IV ONE (07:45)
--- NOTE | 2016-08-22 07:57 | ED PDOC ---
Provider Note pt signed out to me. pending cts and will call back ent. Gio Canchola MD Aug 22, 2016 07:57
--- NOTE | 2016-08-22 10:37 | REP ---
CT ABDOMEN AND PELVIS WITHOUT IV CONTRAST: CT abdomen and pelvis performed without oral or IV contrast. Sagittal and coronal reconstruction images are performed. COMPARISON: 06/04/2015 The visualized lung bases demonstrate mild dependent atelectatic changes. The liver, gallbladder, spleen, adrenals and pancreas are grossly unremarkable. There is a tiny 1 mm calcification in the lower pole of the right kidney. No other renal or ureteral calculi are seen. There is no hydroureteronephrosis. There is no abdominal aortic aneurysm. I see no gross adenopathy. There is no free air. There is no bowel wall thickening. There is no evidence of appendicitis. There is no evidence of a pelvic mass. There is mild nonspecific free fluid in the pelvis. The urinary bladder is not well distended and not optimally evaluated but no calculi are seen intraluminally. No anterior bowel wall defect is seen. IMPRESSION: Tiny calcification the lower pole collecting system of the right kidney. No other evidence of renal or ureteral calculus and no hydroureteronephrosis. No evidence of appendicitis. Mild free fluid in the pelvis is nonspecific. No other acute finding. Signed by Oliverio Phillips MD 08/22/2016 08:30 P
--- NOTE | 2016-08-22 10:46 | REP ---
CT IACS WITHOUT CONTRAST: HISTORY: Underlying abscess. COMPARISON: Maxillofacial CT 08/13/2016. The right internal auditory canal, cochlea, vestibule and semicircular canals are normal in appearance. The ossicles are normal in configuration and position. The scutum and tegmen are intact. The middle ear cavity and mastoid air cells are clear. The patient is status post left mastoidectomy. A stapes prosthesis is present. The left internal auditory canal, cochlea, vestibule, and semicircular canals are normal in appearance. Soft tissue density is present at the mastoidectomy site. This likely represent granulation tissue and appears unchanged compared to the previous study. There is opacification of the residual left mastoid air cells. There is no bone erosion. The left tegmen is intact. The nasopharynx is normal in appearance. The visualized sinuses are clear. IMPRESSION: The patient is status post left mastoidectomy. Signed by Hammad Grant MD 08/22/2016 10:48 A
[2016-08-22] MEDS ORDERED: ACETAMINOPHEN TAB 650MG DOSE (2X325MG) PO PRN (11:00)
[2016-08-22] MEDS ORDERED: PERCOCET 5MG/325MG TAB PO PRN (11:00)
[2016-08-22] MEDS: MORPHINE 2 MG/ML 1ML SYRINGE IV PRN ×2 (11:21→17:13)
[2016-08-22] MEDS ORDERED: KETOROLAC 30 MG/ML VIAL (J1885) IV PRN (12:00)
[2016-08-22 12:11] VITALS: BP 131/73
[2016-08-22] MEDS: NS 1,000 ML IV SCH (13:03)
[2016-08-22] MEDS: LevoFLOXacin IV 500 MG in APPROPRIATE DILUENT 1 EA IV SCH (13:03)
[2016-08-22] MEDS: PROMETHAZINE INJ 25 MG/ML VIAL (J2550) IV PRN (13:03)
[2016-08-22] MEDS: ENOXAPARIN 40 MG/0.4 ML SYRINGE (J1650) SC SCH (13:34)
--- NOTE | 2016-08-22 15:27 | HPE ---
DATE OF ADMISSION: 08/22/2016 PRIMARY CARE PROVIDER: Sha Mosley CHIEF COMPLAINT: Headache, fever, chills, myalgia, left flank pain. HISTORY OF PRESENT ILLNESS: 26-year-old female presents to the emergency department after having several days of fevers, chills, myalgia, has related a temperature as high as 102 approximately 3 to 4 days ago. Has been seen through the emergency department here at [facility]. On 08/13/2016 was told that she had a perforated left tympanic membrane and cellulitis, started on clindamycin, ciprofloxacin drops at that time, Tylenol #3. Went home and felt that she was starting to improve until about 3 days ago she developed a fever of 102, developed left flank pain, abdominal pain, neck and headache that has progressively gotten worse. She has had some nausea with no vomiting. She describes today having photophobia with left-sided neck pain but is able to bend her chin completely to her sternum. She states that her bowel movements have been regular. She denies any dysuria, hematochezia or melena. No vomiting. No diarrhea. PAST MEDICAL HISTORY: As outlined above. She has had mastoiditis and cholesteatoma with recent otitis media and perforated eardrum. PAST SURGICAL HISTORY: Left ear cholesteatoma removed in early 2013. Left ear middle ear reconstruction in November 2013. ALLERGIES: AUGMENTIN, TRAMADOL, FLEXERIL, KEPPRA. CURRENT MEDICATIONS: - Levaquin FAMILY HISTORY: Maternal grandmother has diabetes and ear problem, as well as restless leg syndrome. Father's side has alcohol related issues. Her paternal grandmother of a stroke at age 40. No recent travel. No sick contacts. REVIEW OF SYSTEMS: CONSTITUTIONAL: Positive fevers, chills, decreased appetite, headache, nausea and vomiting. HEENT: Positive for photophobia. No blurry vision, double vision or tinnitus. No difficulty with speech or swallow. PULMONARY: She denies productive sputum, cough, hemoptysis. CARDIOVASCULAR: No chest pain, paroxysmal nocturnal dyspnea, orthopnea or lower extremity edema. GASTROINTESTINAL: Nausea with no vomiting. No diarrhea. Bowel movements are regular. She denies any hematochezia or melena. GENITOURINARY: No dysuria, frequency or hematuria. MUSCULOSKELETAL: No bone, muscle or joint pain, swelling or erythema, but she does describe some myalgia, especially around the time of her fever spike. NEUROLOGIC: She does have a headache, which she describes as a squeezing sensation and pressure throughout her entire head, worse when she bends over. She does have some vague left-sided neck pain. Photophobia is described with some nausea but no vomiting. ENDOCRINE: Negative for diabetes. No thyroid disorder. LYMPHATICS: No lumps, bumps or swelling in the neck, axilla or groin. No weight loss. HEMATOLOGY: No bleeding or bruising disorder. No venous thromboembolism. ONCOLOGY: No history of cancer. PSYCHIATRIC: Positive history of depression. She denies any suicidal ideation. No audiovisual hallucinations. 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 She denies any current use of alcohol. 10-point review of systems complete and pertinent positives are listed. PHYSICAL EXAMINATION: Temperature 96.9, pulse 81, respiratory rate is 18, blood pressure 110/66, SpO2 is 100% on room air. GENERAL: The patient appears to be in no acute distress. She is alert and oriented. HEENT: Head is atraumatic, normocephalic. Eyes: Pupils equal, round, reactive to light and accommodation. Throat clear. There is no reproducible frontal or maxillary sinus tenderness. THe left tympanic membrane does have noted perforation. There is some mild tenderness behind the left ear but no erythema. Palpation of the neck musculature did reveal some tenderness along the left sternocleidomastoid. I did not appreciate any nuchal rigidity. LUNGS: Clear. HEART: Regular rate and rhythm. ABDOMEN: Soft, nontender. Positive bowel sounds. BACK: She does have a bandage across the lower lumbar region where she had a lumbar puncture performed earlier today. EXTREMITIES: No edema. No calf tenderness. Director Occupational strength is equal. NEUROLOGIC: Cranial nerves II-XII are grossly intact with no specific neurologic deficits. White count 14.1, hemoglobin is 12.4, platelets 276. Sodium is 141, potassium 3.1, chloride 104, bicarbonate 25, anion gap 12, BUN 7, creatinine 0.57, glucose is 86. Serum HCG is negative. Urinalysis unremarkable. Cerebrospinal fluid from lumbar puncture: 3 RBCs seen in tube #3. The repeat tube did show pink discoloration with 694 RBCs, glucose is 60, total protein 27.6, 1 WBC is noted. CSF cultures pending. Influenza A and B are negative. Urine culture pending. Blood cultures pending. The throat culture is pending as well. Respiratory panel was pending. CT of head: There is no interval change from previous head CT, which did demonstrate soft tissue thickening of the left mastoid defect and corresponding aspect of the middle year. This does not demonstrate any abscess formation confirmed on CT of the ear, which did not demonstrate any acute findings. CT of the abdomen and pelvis: Tiny calcifications of the lower pole of the collecting system of the right kidney. No other evidence of renal and ureteral calculus and no hydroureteronephrosis noted. No evidence of appendicitis. There is some mild free fluid and pelvis, nonspecific and no other acute finding assess IMPRESSION: Ms. Craig is a 26-year-old female who presents to the emergency department with febrile illness, neck pain, headache, photophobia and nausea with no vomiting. She will be admitted to observation for further evaluation. PROBLEM LIST 1. Cephalgia, most likely migraine headache. 2. Left otalgia, possibly related to otitis media and secondary perforation of the tympanic membrane 3. Febrile illness with myalgias. We will check a respiratory panel. PLAN: The patient be admitted to medical/surgical. She was evaluated in the emergency department by Dr. Morgan, ENT, who did not feel that she had any abscess or acute findings. I did speak to Dr. Rodriguez, who will also see the patient on consult for her vague complaints. I did go ahead and order an MRI and MRA of the brain as well due to the severity of her headache pressure; however, she does not demonstrate any nuchal rigidity and lumbar puncture does not have any suggestion of meningitis or encephalitis at this point. At any rate, will see how she presents over the course of today and through the night. In the meantime for the headache, I did go ahead and give her injection of Toradol 30 mg IV combined with Phenergan 12.5 mg IV. This will be repeated every 6 hours, morphine for severe breakthrough pain. Activity as tolerated. Regular diet. Deep vein thrombosis (DVT) prophylaxis with Lovenox. Due to her nausea, we will go ahead and give her some gentle hydration with IV normal saline at 60 mL an hour. DISPOSITION: Do anticipate her to be ready for discharge tomorrow pending her further workup and laboratories. [facility]
--- NOTE | 2016-08-22 17:04 | REP ---
CHEST, PA AND LATERAL: HISTORY: Pyrexia. COMPARISON: None. FINDINGS: The superior mediastinal structures are midline. The cardiac silhouette is unremarkable in size, shape and position. The diaphragmatic surfaces of the lungs are regular and the costophrenic angles are clear. The pulmonary lay are clear. The imaged osseous structures are intact. IMPRESSION: There is no acute cardiopulmonary disease. Signed by Christiano Rowley DO 08/25/2016 02:31 P
[2016-08-22] MEDS: ONDANSETRON 4MG/2ML VIAL (J2405) IV PRN (17:13)
[2016-08-22 20:55] VITALS: BP 129/63
--- NOTE | 2016-08-22 21:13 | ER ---
DATE OF CONSULTATION: 08/22/2016 Emergency room physician requesting initial consultation. This is a 26-year-old who presents to the emergency room with a severe headache of 5 days duration. This is an otherwise healthy 26-year-old who apparently was having some issues with left ear drainage. The history behind this is that she underwent a tympanomastoidectomy for cholesteatoma approximately 3-1/2 years ago in [place]. Details of that operation are not available, but since then she tells me she has had intermittent drainage from the left ear. She has never had any real associated earache or complications from it, however. In the past 24-48 hours, she has developed a significant disabling headache. The head pain she said initially began on both sides of her upper neck and her occipital region, now spread down her neck and into her forehead. She now is having some significant photophobia, neck stiffness, as well as mild nausea. She has had some ear pain along with this since she was initially evaluated 5 days ago for ear drainage. At that time, she was started on clindamycin and Ciprodex. She is now being admitted to the hospital for further workup of her headaches. On examination, she is awake and she is able to answer questions and she is alert and oriented. She does admit to headache distress. Examination of the right ear canal was clear, the tympanic membrane was intact. The left ear canal shows no significant purulent discharge, the tympanic membrane is visual, it appears to have an anterior and central perforation noted. I do not see evidence of keratin accumulation or granulation tissue to suggest a malignant otitis externa or more aggressive type mastoiditis. There is no soft tissue swelling behind her ear. She underwent a CT scan of the head and, more recently, one of the internal auditory canals (IACs) with temporal bone views to look at the tegmen and the bony separation between the middle ear and the middle cranial fossa. I reviewed the CT scan, there does not appear to be any dehiscence of bone, there does not even appear to be any significant mastoid coalescence on that side. It is my initial thought that an intracranial complication of chronic otitis media is exceptionally rare and, although these xrays do a great deal to eliminate the possibility, I think a better radiological evaluation might be a CT of the mastoid maxillofacial approach with contrast. An MRI with contrast would also be helpful to see if there is any inflammatory process adjacent to the middle ear and the central nervous system, such as cerebritis or a localized temporal lobe abscess, although this is quite unlikely, it is more likely she has a chronically draining ear from previous surgery that is uncomplicated, and she has developed a significant vascular migraine headache. I will be available for further discussions. If she has the updated radiological tests, like the MRI or the CT of the maxillofacial area with contrast, please notify me.
[2016-08-22] MEDS: PERCOCET 5MG/325MG TAB PO PRN (23:13)
[2016-08-23] MEDS: ONDANSETRON 4MG/2ML VIAL (J2405) IV PRN ×2 (00:15→17:35)
[2016-08-23] MEDS: MORPHINE 2 MG/ML 1ML SYRINGE IV PRN ×3 (00:16→06:47)
[2016-08-23] MEDS: NS 1,000 ML IV SCH ×2 (03:56→20:05)
[2016-08-23 04:50] VITALS: BP 120/66
[2016-08-23 07:16] LABS: ANION GAP 7 MEQ/L (8-16); BLOOD UREA NITROGEN 7 MG/DL (7-18); CALCIUM LEVEL 8.5 MG/DL (8.5-10.1); CARBON DIOXIDE LEVEL 25 MEQ/L (21-32); CHLORIDE LEVEL 110 MEQ/L (98-107); CREATININE FOR GFR 0.47 MG/DL (0.55-1.02); GLOMERULAR FILTRATION RATE > 60.0 (>60); GLUCOSE, FASTING 87 MG/DL (70-105); POTASSIUM SERUM 4.2 MEQ/L (3.5-5.1); SODIUM LEVEL 142 MEQ/L (136-145)
[2016-08-23 07:25] LABS: MEAN CORPUSCULAR HEMOGLOBIN 33.5 pg (27.0-33.0); MEAN CORPUSCULAR HGB CONC 33.2 g/dl (32.0-36.5); MEAN CORPUSCULAR VOLUME 100.9 fl (80.0-96.0); RED CELL DISTRIBUTION WIDTH 12.4 % (11.5-14.5); WHITE BLOOD COUNT 6.6 K/mm3 (4.0-10.0)
[2016-08-23] MEDS: ENOXAPARIN 40 MG/0.4 ML SYRINGE (J1650) SC SCH (09:37)
--- NOTE | 2016-08-23 09:52 | IPN ---
DATE: 08/23/2016 26-year-old female seen at bedside, still having some photophobia issues. Feels that her headache is about same, neck pain better, but she is having some intermittent left flank pain still. No nausea, vomiting. She was seen both by ENT and neurology last evening, please refer to their notes. OBJECTIVE: Temperature is 96, pulse 82, respiratory rate 17, blood pressure 120/67, SpO2 is 97% on room air. She remained afebrile through the night last night. She did have one emesis. No bowel movements. HEENT: Head is atraumatic, normocephalic. No frontal or maxillary sinus tenderness. Eyes pupils equal, round and reactive to light and accommodation with equal response and extraocular movement is intact. She does not grimace or have any specific complaints with palpation of the neck. Throat is clear. LUNGS: Clear. HEART: Regular rate and rhythm. ABDOMEN: Soft. No palpable tenderness. No rebound. EXTREMITIES: No edema. No calf tenderness. LABORATORY DATA: White count is 6.6 down from 14,000, hemoglobin 10.8, platelets 266,000. Sodium 142, potassium 4.2, chloride 110, bicarb 25, anion gap 7, BUN is 7, creatinine 0.47, glucose is 87. Urinalysis is unremarkable. Again, her CSF fluid from lumbar puncture was negative. Throat culture is negative for strep. CSF culture is pending. Respiratory panel was negative. Influenza A and B remain negative. Urine cultures shows no growth. Blood culture shows no growth after 24 hours. I did again review her chest x-ray that shows no acute cardiopulmonary disease. Ct abdomen and pelvis again showed a tiny calcification of the lower pole collecting system on the right; however, there is no left-sided findings. No evidence of appendicitis. She does have some mild free fluid in the pelvis, which nonspecific. No other acute findings. CT of the head and ear again did demonstrate status post left mastoidectomy, some opacification and residual tissue around the left mastoid area. Soft tissue density present at the mastoid site likely granulation tissue demonstrated on previous study. ASSESSMENT/PLAN: 1. Cephalgia likely related to migraine headache. Appreciate Dr. Rodriguez's input. She did receive a dose of Toradol and Phenergan yesterday. She stated that this made her feel "fuzzy headed and that is made her sleep," but there were no nursing issues with any complaint of headache during that time. However, she has requested further doses of morphine through the night, which she did not feel was a strong enough dose. I will go ahead and I will increase the morphine to 4 mg every 4 hours p.r.n. Did encourage the use of the Toradol and Phenergan intermittently. She has Percocet also for breakthrough pain and appreciate further insight from Dr. Rodriguez. 2. Left otalgia, possibly related to otitis media secondary to perforation with tympanic membrane. Will continue with current IV antibiotics. 3. Febrile illness with myalgias. Respiratory panel was negative. No other findings of acute infection. Her leukocytosis is resolved. Cultures are all pending, which have shown no growth at this time. 4. Deep vein thrombosis (DVT) prophylaxis with Lovenox. DISPOSITION: The patient has showed some slow improvement. However, she is complaining of still the headache with some intermittent nausea, but I did notice that she is resting comfortably in bed, and she was watching videos on her iPhone when I entered the room. Clinically, I am unimpressed with any acute issues regarding the left flank and abdominal pain. Will continue to treat her symptomatically. Continue with IV fluids and advance diet as tolerated. We would like to get an MRI with contrast per ENT recommendations of the brain and the surrounding area concerning the left ear. MRA has been ordered as well. The issue here however is she does have a stapes implant and we need to make sure that it is MRI compatible. Again appreciate input from ENT and neurology.
[2016-08-23] MEDS: MORPHINE 4 MG/ML 1ML SYRINGE IV PRN ×3 (09:59→20:35)
[2016-08-23] MEDS: DOCUSATE SODIUM 100 MG CAP PO SCH ×2 (13:05→20:05)
[2016-08-23] MEDS: LevoFLOXacin IV 500 MG in APPROPRIATE DILUENT 1 EA IV SCH (13:05)
[2016-08-23] MEDS: PERCOCET 5MG/325MG TAB PO PRN ×2 (13:13→19:33)
[2016-08-23 14:00] VITALS: BP 123/74
[2016-08-23 21:20] VITALS: BP 138/87
[2016-08-24] MEDS: MORPHINE 4 MG/ML 1ML SYRINGE IV PRN ×5 (00:50→20:37)
[2016-08-24] MEDS: PERCOCET 5MG/325MG TAB PO PRN ×4 (02:46→22:27)
[2016-08-24 05:20] VITALS: BP 121/75
[2016-08-24] MEDS: ONDANSETRON 4MG/2ML VIAL (J2405) IV PRN (06:11)
[2016-08-24 06:33] LABS: MEAN CORPUSCULAR HEMOGLOBIN 33.2 pg (27.0-33.0); MEAN CORPUSCULAR HGB CONC 33.6 g/dl (32.0-36.5); WHITE BLOOD COUNT 5.3 K/mm3 (4.0-10.0)
[2016-08-24 06:43] LABS: ANION GAP 7 MEQ/L (8-16); BLOOD UREA NITROGEN 8 MG/DL (7-18); CALCIUM LEVEL 8.5 MG/DL (8.5-10.1); CARBON DIOXIDE LEVEL 26 MEQ/L (21-32); CHLORIDE LEVEL 109 MEQ/L (98-107); CREATININE FOR GFR 0.43 MG/DL (0.55-1.02); GLOMERULAR FILTRATION RATE > 60.0 (>60); GLUCOSE, FASTING 78 MG/DL (70-105); POTASSIUM SERUM 3.9 MEQ/L (3.5-5.1); SODIUM LEVEL 142 MEQ/L (136-145)
[2016-08-24] MEDS: DOCUSATE SODIUM 100 MG CAP PO SCH ×2 (09:54→20:36)
[2016-08-24] MEDS: ENOXAPARIN 40 MG/0.4 ML SYRINGE (J1650) SC SCH (09:54)
[2016-08-24] MEDS: PROMETHAZINE INJ 25 MG/ML VIAL (J2550) IV PRN (10:06)
[2016-08-24] MEDS: LevoFLOXacin IV 500 MG in APPROPRIATE DILUENT 1 EA IV SCH (12:20)
[2016-08-24] MEDS: NS 1,000 ML IV SCH (12:20)
[2016-08-24] MEDS ORDERED: methylPREDNISolone INJ 125 MG/2 ML VIAL (J2930) IV ONE (12:30)
[2016-08-24] MEDS: tiZANidine 4 MG TAB PO PRN ×2 (13:30→21:38)
[2016-08-24 14:00] VITALS: BP 134/87
[2016-08-24] MEDS: MOM 30ML SUSPENSION UDC PO PRN (20:36)
--- NOTE | 2016-08-24 21:46 | IPN ---
DATE: 08/24/2016 A 26-year-old female seen at bedside, resting comfortably, but she states she does continue to have headache, photophobia. No nausea. She is tolerating oral intake. She denies chest pain. She does continue to have some left-sided neck pain, left ear drainage. No abdominal pain. No nausea or vomiting. OBJECTIVE: VITAL SIGNS: Temperature is 97, pulse 84, respiratory rate 16, blood pressure 121/75, SPO2 is 95% on room air. GENERAL: The patient does not appear to be in any acute distress when I entered the room. She is looking up videos on her cell phone or texting, but she does suddenly complain of having a headache that is as severe as it has been, but she appeared to be resting comfortably and either texting or watching a video on her cellphone as I entered the room. HEENT: Head is atraumatic, normocephalic. Eyes: Pupils are equal, round, and reactive to light and accommodation. Extraocular movements intact. Throat clear. LUNGS: Clear. NECK: Supple. HEART: Regular rate and rhythm. ABDOMEN: Soft. EXTREMITIES: No edema. No calf tenderness. LABORATORY DATA: White count 5.3, hemoglobin 10.5, platelets 294. Sodium 142, potassium 3.9, chloride 109, bicarbonate 26, anion gap 7, BUN 8, creatinine 0.43, glucose is 78. ASSESSMENT AND PLAN: 1. Cephalgia, likely related to migraine headache. We will continue with medication and pain control. She has taken morphine and Percocet through the night and this morning and appreciate Dr. Rodriguez's further input. We did discuss further some additional treatment options. We will try some Solu-Medrol 125 mg IV times one. She is complaining about some left-sided neck muscle tenderness. We will try some tizanidine 2 mg every eight hours as needed. 2. Left otalgia, likely related to otitis media and secondary perforation of the tympanic membrane. Continue with Levaquin. 3. Febrile illness and myalgias. Respiratory panel was negative. No other acute findings of infection and leukocytosis has resolved. Cultures are pending which have shown no growth at this time. 4. History of pseudoseizures which appear to be controlled. 5. Deep vein thrombosis (DVT) prophylaxis with Lovenox. DISPOSITION: The patient was unable to have an MRI due to an implanted stapes in the left ear that she has had previously with reconstructive surgery. We did request phone number for contact information for the installation where she originally was seen and treated for this and we will have to wait until Thursday since the offices are closed. I did discuss the case again with Dr. Santiago, who felt that there was no significant organic issue going on to suggest either an encephalitis or meningitis at this point. He has encouraged us to continue with current antibiotic coverage and symptomatic therapy. Again, Dr. Rodriguez will see the patient again this afternoon and will try some additional modalities of Solu-Medrol and tizanidine. She may need ongoing outpatient workup with neurology once she is discharged. However, clinically, she does not show any signs of sepsis, encephalitis, or meningitis at this time. CORNELIO
[2016-08-24 22:00] VITALS: BP 133/73
[2016-08-25] MEDS: MORPHINE 4 MG/ML 1ML SYRINGE IV PRN ×5 (01:15→20:12)
--- NOTE | 2016-08-25 02:30 | REPUSA ---
CLINICAL HISTORY: Numbness. TECHNIQUE: Multiple axial brain CT scan sections were obtained from base to vertex without contrast a dministration. COMMENTS: The study shows normal configuration of sella turcica. There are no intra or extra-axial collections. There is no mass effect or midline shift. There is no evidence of hematoma formation. No hydrocephal us is present. No abnormal calcifications are noted. No significant abnormalities are seen either in the posterior fossa or supratentorial compartment. Surgical changes from prior left mastoidectomy. Soft tissue thickening in the surgical defect of the left mastoid. The soft tissue thickening extends to the corresponding left middle ear cavity. The sinuses and mastoid air cells are patent. IMPRESSION: No change from the prior exam on 08/22/2016. No evidence of acute intracranial pathology. No change in left mastoidectomy and soft tissue thickening extending to the left middle ear cavity. Thank you for your kind referral of this patient.
--- NOTE | 2016-08-25 02:30 | REPUSA ---
CLINICAL HISTORY: Neck pain. TECHNIQUE: Multiple axial images were obtained through the cervical spine. Images were also reconstru cted in coronal and sagittal planes. The study was performed without IV contrast. COMMENTS: There is no fracture or spondylolisthesis visualized. The paraspinal soft tissues are unremarkable. T here are no lytic or blastic lesions. Straightening of cervical lordosis is seen, suggesting muscular spasm. There is evidence of minimal m ultilevel disk disease, demonstrated by minimal osteophytosis and endplate sclerosis. No significant disk herniation is noted at any level. Canal and foramina remain patent. IMPRESSION: 1. No fracture or spondylolisthesis. 2. Straightening of cervical lordosis is seen, suggesting muscular spasm. 3. Minimal multilevel spondylosis. Thank you for your kind referral of this patient.
[2016-08-25] MEDS: LevoFLOXacin 500 MG TABLET PO SCH (05:49)
[2016-08-25 06:00] VITALS: BP 117/72
[2016-08-25] MEDS: ONDANSETRON 4MG/2ML VIAL (J2405) IV PRN ×2 (06:26→20:47)
[2016-08-25] MEDS: NS 1,000 ML IV SCH (06:26)
[2016-08-25 06:31] LABS: MEAN CORPUSCULAR HEMOGLOBIN 33.5 pg (27.0-33.0); MEAN CORPUSCULAR VOLUME 98.7 fl (80.0-96.0); WHITE BLOOD COUNT 7.9 K/mm3 (4.0-10.0)
[2016-08-25 06:47] LABS: ANION GAP 7 MEQ/L (8-16); BLOOD UREA NITROGEN 8 MG/DL (7-18); CALCIUM LEVEL 9.1 MG/DL (8.5-10.1); CARBON DIOXIDE LEVEL 28 MEQ/L (21-32); CHLORIDE LEVEL 105 MEQ/L (98-107); CREATININE FOR GFR 0.46 MG/DL (0.55-1.02); GLOMERULAR FILTRATION RATE > 60.0 (>60); GLUCOSE, FASTING 91 MG/DL (70-105); POTASSIUM SERUM 3.8 MEQ/L (3.5-5.1); SODIUM LEVEL 140 MEQ/L (136-145)
[2016-08-25] MEDS: DOCUSATE SODIUM 100 MG CAP PO SCH ×2 (08:16→20:12)
[2016-08-25] MEDS: MOM 30ML SUSPENSION UDC PO PRN (08:16)
[2016-08-25] MEDS: ENOXAPARIN 40 MG/0.4 ML SYRINGE (J1650) SC SCH (08:16)
[2016-08-25] MEDS: PERCOCET 5MG/325MG TAB PO PRN ×3 (08:17→22:10)
[2016-08-25] MEDS: PROMETHAZINE INJ 25 MG/ML VIAL (J2550) IV PRN (12:02)
[2016-08-25] MEDS: tiZANidine 4 MG TAB PO PRN (12:02)
[2016-08-25] MEDS ORDERED: predniSONE 10 MG TAB PO SCH (13:00)
[2016-08-25 14:00] VITALS: BP 128/60
[2016-08-25] MEDS: predniSONE 20 MG TAB PO SCH (14:56)
[2016-08-25] MEDS ORDERED: MAGNESIUM CITRATE 300 ML BTL PO ONE ×2 (16:00→20:00)
[2016-08-25] MEDS ORDERED: ISOVUE-370 76% 100ML VIAL (Q9967) As Ordered ONE (16:27)
--- NOTE | 2016-08-25 17:00 | IPNPDOC ---
Date Seen The patient was seen on 08/25/16. Progress Note Hospitalist Progress Note Subjective: Patient states that her headache is less of a concern today, as her ear is bothering her more than her head. She also reports persistent drainage from her ear Objective: Physical Exam: Vitals: Vital Sign - Last 24 Hours 08/24/16 08/24/16 08/24/16 08/24/16 18:00 20:37 22:00 22:27 Temp 96.5 Pulse 86 Resp 18 18 16 18 B/P 133/73 Pulse Ox 97 O2 Delivery Room Air Room Air Room Air Room Air 08/25/16 08/25/16 08/25/16 08/25/16 01:15 05:50 06:00 08:17 Temp 96.7 Pulse 77 Resp 16 16 16 18 B/P 117/72 Pulse Ox 99 O2 Delivery Room Air Room Air Room Air Room Air 08/25/16 08/25/16 08/25/16 08/25/16 08:47 10:09 10:19 14:00 Temp 97.5 Pulse 77 Resp 18 18 16 B/P 128/60 Pulse Ox 97 O2 Delivery Room Air Room Air Room Air Room Air 08/25/16 08/25/16 14:56 15:06 Resp 18 18 O2 Delivery Room Air General:, Alert, no acute distress HEENT: Normal Cephalic, atraumatic, extraocular movements intact CV: Regular rate and rhythm Lungs: Clear to auscultation bilaterally Abd: Normal bowel sounds, soft, nontender Extremities: No edema Neuro: Alert and oriented 3 Psych: Normal mood and affect Labs and Imaging: Laboratory Tests 08/25/16 05:49 Calcium Level 9.1, Red Blood Count 3.46 L, Mean Corpuscular Volume 98.7 H, Mean Corpuscular Hemoglobin 33.5 H, Mean Corpuscular Hemoglobin Concent 34.0, Red Cell Distribution Width 12.0 Assessment and Plan: 26-year-old female with history of pseudoseizures, mastoiditis and cholesteatoma status post mastoidectomy and stapes implant who presented with fevers and a recently diagnosed otitis media with perforated eardrum. She has also had persistent headaches 1. Headache: The patient has been seen by Dr. Rodriguez who would like to start her on amitriptyline and wean down the narcotics she does not get rebound headaches. At this time, the patient is not interested in trying amitriptyline. She did receive a dose of Solu-Medrol yesterday, we will start her on a prednisone taper that was recommended by Dr. Rodriguez. Dr. Rodriguez would also like to get an MRV to rule out venous thrombosis. Unfortunately, secondary to the patient's stapes implant, we are not confident that she is safe for an MRI. The patient has lost her card which gives us more information but the implant, and she has been unable to obtain any further information from prior healthcare providers about the implant. At this time, we will attempt a CT venogram to help rule out 3 times a day of the venous thrombus. 2. Left otalgia with otitis media and perforation of the tympanic membrane. Continue with Levaquin. 3. Febrile illness and myalgias: Respiratory virus panel was negative. There is no other evidence of infection and her white count is normal. Ultracet been negative. I suspect that this is related to the otitis media. She does not show any signs of meningitis or encephalitis, as her mental state is intact, and she has no nuchal rigidity. 4. Pseudoseizures: Currently appear to be controlled. DVT prophylaxis: Lovenox Dispo: pending neurologic imaging and clinical improvement VS, I&O, 24H, Fishbone Vital Signs/I&O Vital Signs Date Time Temp Pulse Resp B/P Pulse Ox O2 Delivery O2 Flow Rate FiO2 08/25/16 15:06 18 08/25/16 14:56 Room Air 08/25/16 14:00 97.5 77 128/60 97 I&O- Last 24 Hours up to 6 AM 08/25/16 06:00 Intake Total 3700 ml Output Total 0 ml Balance 3700 ml Laboratory Data 24H LABS Laboratory Tests 2 08/25/16 05:49: Anion Gap 7L, Blood Urea Nitrogen 8, Creatinine 0.46L, Sodium Level 140, Potassium Level 3.8, Chloride Level 105, Carbon Dioxide Level 28, Calcium Level 9.1, Glomerular Filtration Rate > 60.0 CBC/BMP Laboratory Tests 08/25/16 05:49 Calcium Level 9.1, Red Blood Count 3.46 L, Mean Corpuscular Volume 98.7 H, Mean Corpuscular Hemoglobin 33.5 H, Mean Corpuscular Hemoglobin Concent 34.0, Red Cell Distribution Width 12.0 Microbiology Microbiology 08/22/16 Blood Culture - Preliminary, Resulted No Growth after 72 hours. All specime... 08/22/16 Gram Stain - Final, Complete 08/22/16 CSF Culture - Final, Complete 08/22/16 Group A Streptococcus Screen ([facility]) - Final, Complete 08/22/16 Respiratory Virus Panel (PCR) ([facility]) - Final, Complete 08/22/16 Influenza Virus Type A Antigen - Final, Complete 08/22/16 Influenza Virus Type B Antigen - Final, Complete 08/22/16 Urine Culture - Final, Complete MAVIS VAZQUEZ Aug 25, 2016 17:00
--- NOTE | 2016-08-25 17:43 | REP ---
CT ANGIO HEAD: HISTORY: Headache. CONTRAST: Isovue-370, 75 mL. There is no aneurysm, arteriovenous malformation or arthrosclerotic lesion. Major intracranial vessels are patent. There are no filling defects in the deep venous system or dural sinuses. IMPRESSION: Normal CT ANGIO head. Signed by Hamamd Grant MD 08/26/2016 08:03 A
[2016-08-25 22:00] VITALS: BP 119/80
[2016-08-26] MEDS: NS 1,000 ML IV SCH ×2 (00:06→15:44)
[2016-08-26] MEDS: MORPHINE 4 MG/ML 1ML SYRINGE IV PRN ×6 (00:20→21:30)
[2016-08-26] MEDS: tiZANidine 4 MG TAB PO PRN ×2 (01:30→12:33)
[2016-08-26] MEDS: PERCOCET 5MG/325MG TAB PO PRN ×5 (03:03→19:54)
[2016-08-26] MEDS: LevoFLOXacin 500 MG TABLET PO SCH (05:30)
[2016-08-26 06:00] VITALS: BP 109/62
[2016-08-26 06:55] LABS: MEAN CORPUSCULAR HEMOGLOBIN 33.6 pg (27.0-33.0); MEAN CORPUSCULAR HGB CONC 33.8 g/dl (32.0-36.5); MEAN CORPUSCULAR VOLUME 99.4 fl (80.0-96.0); WHITE BLOOD COUNT 7.3 K/mm3 (4.0-10.0)
[2016-08-26 07:22] LABS: ANION GAP 7 MEQ/L (8-16); BLOOD UREA NITROGEN 10 MG/DL (7-18); CALCIUM LEVEL 8.9 MG/DL (8.5-10.1); CARBON DIOXIDE LEVEL 30 MEQ/L (21-32); CHLORIDE LEVEL 104 MEQ/L (98-107); CREATININE FOR GFR 0.48 MG/DL (0.55-1.02); GLOMERULAR FILTRATION RATE > 60.0 (>60); GLUCOSE, FASTING 84 MG/DL (70-105); POTASSIUM SERUM 3.8 MEQ/L (3.5-5.1); SODIUM LEVEL 141 MEQ/L (136-145)
[2016-08-26] MEDS: DOCUSATE SODIUM 100 MG CAP PO SCH ×2 (09:00→19:55)
[2016-08-26] MEDS: predniSONE 20 MG TAB PO SCH (09:01)
[2016-08-26] MEDS: ENOXAPARIN 40 MG/0.4 ML SYRINGE (J1650) SC SCH (09:01)
--- NOTE | 2016-08-26 11:08 | IPNPDOC ---
Date Seen The patient was seen on 08/26/16. Progress Note Subjective : continues to complain of severe headache, says cannot hear anything in the left ear. remains sensitive to light. no nausea or vomiting or diarrhea, requiring iv morphine. Vitals: Vital Signs Label Value Date Time Patient Temperature 98.1 degrees F 08/26/16599 Temperature Source Tympanic 08/26/16599 Pulse 82 08/26/16599 Respiratory Rate 17 bpm 08/26/16599 Blood Pressure Assessment 109/62 (78) 08/26/16599 Bedside Pulse Oximetry 98 % 08/26/16599 Item Value Date Time Oxygen Delivery Method Room Air 08/26/16599 General:, Alert, no acute distress HEENT: Normal Cephalic, atraumatic, extraocular movements intact CV: Regular rate and rhythm Lungs: Clear to auscultation bilaterally Abd: Normal bowel sounds, soft, nontender Extremities: No edema Neuro: Alert and oriented 3 Psych: Normal mood and affect Assessment and Plan: 26-year-old female with history of pseudoseizures, mastoiditis and cholesteatoma status post mastoidectomy and stapes implant who presented with fevers and a recently diagnosed otitis media with perforated eardrum. She has also had persistent headaches 1. Headache: The patient has been seen by Dr. Rodriguez who would like to start her on amitriptyline and wean down the narcotics she does not get rebound headaches. At this time, the patient is not interested in trying amitriptyline. Started her on a prednisone taper that was recommended by Dr. Rodriguez. Dr. Rodriguez would also like to get an MRV to rule out venous thrombosis. Unfortunately, secondary to the patient's stapes implant, we are not confident that she is safe for an MRI. The patient has lost her card which gives us more information but the implant, and we have not been unable to obtain any further information from prior healthcare providers about the implant. The hospital in [facility] where she had the procedure done was contacted and could not find her procedure notes though there are records of post procedure visit notes present. We got a CT venogram to help rule out cerebral venous thrombosis . it was negative. 2. Left otalgia with otitis media and perforation of the tympanic membrane. Continue with Levaquin. 3. Febrile illness and myalgias: Respiratory virus panel was negative. There is no other evidence of infection and her white count is normal. Ultracet been negative. I suspect that this is related to the otitis media. She does not show any signs of meningitis or encephalitis, as her mental state is intact, and she has no nuchal rigidity. 4. Pseudoseizures: Currently appear to be controlled. DVT prophylaxis: Lovenox Dispo: pending clinical improvement VS, I&O, 24H, Fishbone Vital Signs/I&O Vital Signs Date Time Temp Pulse Resp B/P Pulse Ox O2 Delivery O2 Flow Rate FiO2 08/26/16 09:30 18 08/26/16 07:34 Room Air 08/26/16 06:00 98.1 82 109/62 98 I&O- Last 24 Hours up to 6 AM 08/26/16 06:00 Intake Total 3560 ml Output Total 0 ml Balance 3560 ml Laboratory Data 24H LABS Laboratory Tests 2 08/26/16 06:37: Anion Gap 7L, Blood Urea Nitrogen 10, Creatinine 0.48L, Sodium Level 141, Potassium Level 3.8, Chloride Level 104, Carbon Dioxide Level 30, Calcium Level 8.9, Glomerular Filtration Rate > 60.0 CBC/BMP Laboratory Tests 08/26/16 06:37 Calcium Level 8.9, Red Blood Count 3.63 L, Mean Corpuscular Volume 99.4 H, Mean Corpuscular Hemoglobin 33.6 H, Mean Corpuscular Hemoglobin Concent 33.8, Red Cell Distribution Width 12.0 Microbiology Microbiology 08/22/16 Blood Culture - Preliminary, Resulted No Growth after 72 hours. All specime... 08/22/16 Gram Stain - Final, Complete 08/22/16 CSF Culture - Final, Complete 08/22/16 Group A Streptococcus Screen ([facility]) - Final, Complete 08/22/16 Respiratory Virus Panel (PCR) ([facility]) - Final, Complete 08/22/16 Influenza Virus Type A Antigen - Final, Complete 08/22/16 Influenza Virus Type B Antigen - Final, Complete 08/22/16 Urine Culture - Final, Complete DALE VIVAS MD Aug 26, 2016 11:08
[2016-08-26] MEDS: ONDANSETRON 4MG/2ML VIAL (J2405) IV PRN (13:43)
[2016-08-26 14:00] VITALS: BP 112/67
[2016-08-26] MEDS: PROMETHAZINE INJ 25 MG/ML VIAL (J2550) IV PRN (18:24)
[2016-08-26 22:00] VITALS: BP 107/58
[2016-08-27] MEDS: PERCOCET 5MG/325MG TAB PO PRN ×3 (00:02→08:43)
[2016-08-27] MEDS: MORPHINE 4 MG/ML 1ML SYRINGE IV PRN ×2 (01:46→06:18)
[2016-08-27] MEDS: LevoFLOXacin 500 MG TABLET PO SCH (05:51)
[2016-08-27 06:00] VITALS: BP 113/63
[2016-08-27 07:06] LABS: MEAN CORPUSCULAR HEMOGLOBIN 33.4 pg (27.0-33.0); MEAN CORPUSCULAR HGB CONC 32.7 g/dl (32.0-36.5); RED CELL DISTRIBUTION WIDTH 12.2 % (11.5-14.5); WHITE BLOOD COUNT 9.1 K/mm3 (4.0-10.0)
[2016-08-27 07:27] LABS: ANION GAP 9 MEQ/L (8-16); BLOOD UREA NITROGEN 12 MG/DL (7-18); CALCIUM LEVEL 8.6 MG/DL (8.5-10.1); CARBON DIOXIDE LEVEL 26 MEQ/L (21-32); CHLORIDE LEVEL 106 MEQ/L (98-107); CREATININE FOR GFR 0.51 MG/DL (0.55-1.02); GLOMERULAR FILTRATION RATE > 60.0 (>60); GLUCOSE, FASTING 71 MG/DL (70-105); POTASSIUM SERUM 3.5 MEQ/L (3.5-5.1); SODIUM LEVEL 141 MEQ/L (136-145)
[2016-08-27] MEDS: NS 1,000 ML IV SCH (08:43)
[2016-08-27] MEDS: DOCUSATE SODIUM 100 MG CAP PO SCH (08:43)
[2016-08-27] MEDS: ENOXAPARIN 40 MG/0.4 ML SYRINGE (J1650) SC SCH (08:44)
[2016-08-27] MEDS ORDERED: predniSONE 20 MG TAB PO SCH (09:00)
[2016-08-27] MEDS ORDERED: PRED10TA PO (10:20)
[2016-08-27] MEDS ORDERED: PAME25CA PO (10:20)
[2016-08-27] MEDS ORDERED: REGL5TAB2 PO (10:20)
[2016-08-27] MEDS ORDERED: ZANA4TAB PO (10:20)
[2016-08-27] MEDS ORDERED: ROXI1TAB2 PO (10:28)
[2016-08-27] MEDS ORDERED: PERCOCET 5MG/325MG TAB PO PRN ×2 (11:00)
--- NOTE | 2016-08-28 19:47 | DSES ---
DATE OF ADMISSION: 08/22/2016 DATE OF DISCHARGE: 08/27/2016 PRIMARY CARE PROVIDER: Chemo Roberto. DISCHARGE DIAGNOSES: 1. Migraine with severe cephalgia. 2. Possible narcotic induced rebound headache. 3. 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 4. History of cholesteatoma and tympanomastoidectomy. 5. 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 6. Deafness in the left ear. DISCHARGE MEDICATIONS: - nortriptyline 25 mg at bed time - Reglan 5 mg by mouth before meals and before bed - Prednisone tapering course as directed - tizanidine 2 mg by mouth every 8 hours as needed - oxycodone 5-10 mg by mouth every 12 hours as needed - levofloxacin 750 mg daily - multivitamin 1 tablet daily HOSPITAL COURSE: This is a 26-year-old female with history of chronically draining left ear after tympanomastoidectomy done 3 1/2 years ago presented to the hospital with two or three days history of fever, chills and myalgia along with left flank pain, abdominal pain, headache and neck pain which progressively worsened with nausea and photophobia, so came to the emergency room. The patient about two weeks ago had presented to our emergency room with earache and was found to have an ear infection and started on clindamycin and ciprofloxacin. Patient was also given Tylenol #3. Here in the hospital patient continued to complain of severe headache and neck pain, intermittently had a drainage. Patient had an extensive work up for headache including CT scan of the head, CT scan of the inner ear, cervical spine CT scan as well as CT angiogram of the vascular systems of the brain including the cerebral venous system, which were all negative for any intracranial pathology. There was no cerebral venous thrombosis, no intracranial complications from left ear. There was no cerebral ascites. Could not do an MRI venogram because of patients Cochlear implant and patient could not supply us with the card of her device. We tried to call the hospital in [facility], where she had the procedure done. They seemed to have displaced her operative procedure notes, however they did have physician notes from postoperative visits. Patient continued to require narcotics round the clock and at a point it was felt that significant portion of her headache is possibly related to narcotic withdrawal. Patient was sen by neurology, Dr. Rodriguez as well as ENT specialist Dr. Thomas and this was explained to the patient. Patient however was adamant and wanted further work up for her headache. It was explained that all her headache is possibly related to migraine and she was then started on a weaning course of steroids and was advised to start on nortriptyline, which initially she refused, however did except to try nortriptyline at home. At present she continues to complain of headache and is very tearful and is not ready to accept the diagnosis of migraine. It was explained that patient it may take up to three weeks for migraine medications to start acting. She was given short course of oxycodone to help her with the pain until the amitriptyline starts acting. She was also advised to take combination of Tylenol and Motrin at home as required for headache. At present she is functionally at her baseline with stable vitals and is discharged home. PHYSICAL EXAMINATION: VSL Temperature 98.9, pulse 76, respiratory rate 19, blood pressure 113/63, pulse oximetry 100% on room air. GENERAL: Patient awake, alert, and oriented times three. Sitting up in bed in no acute distress. HEENT: Normocephalic, atraumatic. Moist mucous membranes. Anicteric eyes. DIEGO: Clear to auscultation. CARDIOVASCULAR: S1, S2, regular. No murmurs, rubs or gallops. ABDOMEN: Soft, non-tender. Bowel sounds present. EXTREMITIES: No edema. LABORATORY DATA: WBC 9.1, hemoglobin 11.6, platelet 419, sodium 141, potassium 3.5, chloride 106, bicarbonate 26, BUN 12, creatinine 0.5, calcium 8.6 UA was negative. CSF study did not show any signs of infection. WBC was 1. Protein was 27.6. Glucose 60. CT angiogram of the head did not show any aneurysm, arteriovenous malformation or atherosclerotic lesion. All the major intracranial vessels were patent. There was no filling defects in the deep venous systems of the dural sinuses. Cervical spine CT did not show any fracture or spondylolisthesis. There was some straightening of the cervical lordosis suggesting muscular spasm. CT of the ear showed patient was status post mastoidectomy. There was a stapes prosthesis present in the left internal auditory canal. Cochlear, vestibular and semicircular canals were all normal in appearance. Soft tissue density present in the mastoidectomy site which likely is presence of granulation tissue and appears unchanged compared to previous study. There is no bone erosion. The left tegmen is intact. The nasopharynx is normal in appearance. The visualized sinuses are clear. The right internal auditory canal, Cochlear, vestibular and semicircular canals are normal in appearance. The ossicles are normal. The scutum and tegmen are intact in the middle ear cavity and mastoid air cells are clear. DISPOSITION: Patient is discharged home in stable condition. DISCHARGE INSTRUCTIONS: Patient to follow up with Dr. Thomas from ENT on 08/28/2016. Patient to follow up with Dr. Rodriguez for neurology in two weeks. Patient to follow up with primary care provider in one week. Regular diet. Activity as tolerated.
[2016-08-29] MEDS ORDERED: predniSONE 20 MG TAB PO SCH (09:00)
[2016-08-31] MEDS ORDERED: predniSONE 10 MG TAB PO SCH (09:00)
== END 2016-08-27 11:27 | disposition home or self-care (01) | DRG 103 ==
LOC: M ED 08-22 01:20 → M ED INP 08-22 10:53 → OBSVTOIN 08-22 10:53 → M MSPAV 08-22 12:46 → INTOOBSV 08-25 12:49 → OBSVTOIN 08-25 12:49
PROVIDERS: ADMIT Hospitalist; ATTEND Internal Medicine Nephrology
PROC: 009U3ZX Drainage of Spinal Canal, Percutaneous Approach, Diagnostic (ICD-10-PCS; principal; 2016-08-25)
DX: G43.909 Migraine, unspecified, not intractable, without status migrainosus (principal); H92.02 Otalgia, left ear; H66.92 Otitis media, unspecified, left ear; H72.02 Central perforation of tympanic membrane, left ear; G44.1 Vascular headache, not elsewhere classified; H91.92 Unspecified hearing loss, left ear; Z96.21 Cochlear implant status; Z76.5 Malingerer [conscious simulation]; Z88.0 Allergy status to penicillin; Z88.8 Allergy status to other drugs, medicaments and biological substances; Z88.5 Allergy status to narcotic agent

== ENCOUNTER → 2016-08-28 | Outpatient (REF) | payer OTHER ==
[~2016-08-28] MED LIST changes: +ACET30TAB PO; +LEVO750T33 PO; +MULTTAB4 PO; +PAME25CA PO; +PRED10TA PO; +REGL5TAB2 PO; +ROXI1TAB2 PO; +ZANA4TAB PO
== END ==
LOC: M LAB REF 16:15
PROVIDERS: ATTEND Otolaryngology
DX: H66.3X2 Other chronic suppurative otitis media, left ear (principal)

== ENCOUNTER → 2016-09-16 | Outpatient (REF) | payer OTHER | LOC: M LAB REF 12:33 | PROVIDERS: ATTEND Otolaryngology | DX: H70.12 Chronic mastoiditis, left ear (principal) ==

== ENCOUNTER → 2016-10-27 | Day surgery (SDC) | payer OTHER ==
[~2016-10-27] VITALS: Ht 167.6 cm; Wt 71.2 kg
[~2016-10-27] MED LIST changes: +ACETAMINOPH W/CODEINE #3 TAB UD PO PRN; +CIPRODEX OTIC SUSP 7.5ML As Ordered ONE; +EPINEPHrine 1MG/ML INJ 30ML MD-VIAL As Ordered ONE; +GLYCOPYRROLATE INJ 0.2 MG/ML 2 ML VIAL As Ordered ONE; +HYDROmorphone HCL 2 MG/ML 1ML VIAL (J1170) As Ordered ONE; +KETOROLAC 60 MG/2 ML VIAL (J1885) As Ordered ONE; +LIDOCAINE 2% INJ 100 MG/5 ML SDV (FOR ANES.) As Ordered ONE; +LIDOCAINE W/EPINEPHRINE 1% 20ML VIAL As Ordered ONE; +LR 1,000 ML IV ONE; +LR 1,000 ML IV SCH; +METOCLOPRAMIDE INJ 10MG/2ML VIAL (J2765) As Ordered ONE; +METOCLOPRAMIDE INJ 10MG/2ML VIAL (J2765) IV PRN; +MIDAZOLAM INJ 2 MG/2 ML VIAL (J2250) As Ordered ONE; +MORPHINE 10 MG/ML 1ML VIAL IV PRN; +NEOSTIGMINE 1MG/ML 5 ML SYRINGE (J2710) As Ordered ONE; +ONDANSETRON 4MG/2ML VIAL (J2405) As Ordered ONE; +ONDANSETRON 4MG/2ML VIAL (J2405) IV PRN; +PERCOCET 5MG/325MG TAB As Ordered ONE; +PERCOCET 5MG/325MG TAB PO PRN; +PROPOFOL 200 MG/20 ML VIAL As Ordered ONE; +ROCURONIUM BROMIDE 50 MG/5 ML VIAL As Ordered ONE; +TYLE325T5 PO; +dexameTHASONE 4 MG/ML 1ML VIAL (J1100) As Ordered ONE; +fentaNYL 100 MCG/2 ML INJECTION (J3010) IV PRN; +fentaNYL 250 MCG/5 ML INJECTION (J3010) As Ordered ONE
[2016-10-27 06:26] LABS: CONTROL LINE UCG INT CTR LINE PRESENT
[2016-10-27 11:30] VITALS: BP 139/76
--- NOTE | 2016-10-27 13:34 | RO ---
DATE OF PROCEDURE: 10/27/2016 PREPROCEDURE DIAGNOSIS: Chronic otitis media with cholesteatoma. POSTPROCEDURE DIAGNOSIS: Chronic otitis media with cholesteatoma, left side. OPERATIVE PROCEDURE: Left tympanomastoidectomy. SURGEON: Dr. Dmitriy Stallings SYSTEMS SOFTWARE ENGINEER: ANESTHESIA: FINDINGS: There was a large cholesteatoma sac in the mastoid cavity, which arose from the attic area. The patient appeared to have a previous atticotomy because the posterior superior part of the canal had been gone. There was a total ossicular reconstruction prosthesis, which was involved with the cholesteatoma, so it was removed. There was no stapes superstructure, and there was no incus, and there was no malleus. At the end of the procedure, the posterior superior aspect of the tympanic membrane was absent. DESCRIPTION OF PROCEDURE: Under general anesthesia with the patient intubated and the patient prepped and draped in the usual manner, I used the facial nerve monitor during the procedure and did not see the facial nerve during the procedure. The patient appeared to have a facial nerve recess approach, so I did not have to worry about drilling down identifying the facial nerve. So, what I did was made a posterior tympanotomy incision and lateral incisions and made a postauricular incision, then joined the endaural and the postauricular dissection. I elevated the tissues off of the mastoid bone. A graft had been taken before, so I had to go a bit more superior anterior to get some temporalis fascia to reconstruct the tympanic membrane. The graft was harvested. Bleeding was controlled with cautery. A meatoplasty was performed at the end of the procedure. So, initially, what I did was I dissected down and removed the large cholesteatoma sac from the mastoid cavity. Once this was done, I could see right up into the attic area. Using the drill, I drilled down into the mastoid cavity, identifying the landmark superiorly and posteriorly, anteriorly and medially; and then once this was done, I drilled down the canal wall. Once the canal wall was drilled down, then I was able to remove all of the cholesteatoma and epithelium from the superior epitympanum and anterior. drilled this area all out so it was completely exposed. Once that was done, then I drilled down the canal wall even more. Once that was done, then I just put some Silastic sheeting in the middle air space and then laid some Gelfoam on sean of that, and then laid the graft on top of that and then returned the drum to its original position. Then I put some more Gelfoam on top of that. A meatoplasty performed by removing cartilage and soft tissue from posterior to the canal wall at the os. Once it was nice and mobile, then I sutured it with 3-0 chromic laterally posterior, inferior, and superior. Iodoform gauze was placed in the mastoid cavity and external auditory canal, and then I closed the posterior wound with 3-0 chromic and 3-0 Prolene. The patient tolerated the procedure well. Less than 10 mL estimated blood loss. The wound was dressed. The patient extubated and returned to the recovery room in excellent condition.
== END ==
LOC: M SDC 05:55
PROVIDERS: ATTEND Otolaryngology
DX: H66.92 Otitis media, unspecified, left ear (principal); H71.92 Unspecified cholesteatoma, left ear; Z87.891 Personal history of nicotine dependence; Z88.0 Allergy status to penicillin; Z88.8 Allergy status to other drugs, medicaments and biological substances; Z88.5 Allergy status to narcotic agent
CPT/HCPCS: 69641; 84703; 88305; J1100; J1170; J1885; J2250; J2405; J2710; J2765; J3010